=== PATIENT | male | born 1955 | race Caucasian/White ===

== ENCOUNTER 2018-05-17 08:34 | Emergency (ER) | payer MEDICARE ==
--- NOTE | 2018-05-17 08:56 | EDM.PDOC ---
ED HPI GENERAL MEDICAL PROBLEM - General Chief Complaint: Chest Pain Stated Complaint: RT SIDE STUFF Time Seen by Provider: 05/17/18 08:50 Source of Information: Reports: Patient, Provider History Limitations: Reports: No Limitations - History of Present Illness INITIAL COMMENTS - FREE TEXT/NARRATIVE: This 63 yo male patient was sent to the ED from the [facility] due to increased confusion, right sided chest pain and swelling in his right lower extremity. The patient was seen for pneumonia on May 04 and completed a course of Levaquin. The patient reported to Kelli Luciano that his blood sugars have been "fine" at home. The patient reports his symptoms started within the past 24 hours. The patient has a history of CAD, diabetes and a previous DVT ( reported by Kelli Luciano). Onset: Today Duration: Resolved Prior to Arrival Location: Reports: Chest Quality: Reports: Other Severity: Moderate Associated Symptoms: Reports: Shortness of Breath - Related Data Allergies Allergy/AdvReac Type Severity Reaction Status Date / Time No Known Allergies Allergy Verified 05/17/18 08:50 Home Meds: Home Meds Aspirin 81 mg PO DAILY 05/17/18 [History] Carvedilol [Coreg] 25 mg PO BID 05/17/18 [History] Codeine Phosphate/Guaifenesin [Guaifen-Codeine 100-10 mg/5 ml] 5 ml PO BEDTIME PRN 05/17/18 [History] Gabapentin [Neurontin] 300 mg PO TID 05/17/18 [History] Insulin Detemir [Levemir] 60 units SQ BEDTIME 05/17/18 [History] Insulin Regular, Human [Humulin R] 20 units SQ TID 05/17/18 [History] Inulin/Chromium Picolinate [Fiber Gummies] 2 tab PO DAILY 05/17/18 [History] Lisinopril/Hydrochlorothiazide [Zestoretic 20-12.5 mg Tablet] 1 tab PO DAILY [History] Simvastatin [Zocor] 20 mg PO BEDTIME 05/17/18 [History] ED ROS GENERAL - Review of Systems Review Of Systems: ROS reveals no pertinent complaints other than HPI. ED EXAM, GENERAL - Physical Exam Exam: See Below Exam Limited By: No Limitations General Appearance: Alert, WD/WN, No Apparent Distress Eye Exam: Bilateral Eye: EOMI, Normal Inspection, PERRL Ears: Normal External Exam, Normal Canal, Hearing Grossly Normal, Normal TMs Nose: Normal Inspection, Normal Mucosa, No Blood Throat/Mouth: Normal Inspection, Normal Lips, Normal Teeth, Normal Gums, Normal Oropharynx, Normal Voice, No Airway Compromise Head: Atraumatic, Normocephalic Neck: Normal Inspection, Supple, Non-Tender, Full Range of Motion Respiratory/Chest: Decreased Breath Sounds (bilateral lower lobes) Cardiovascular: Normal Peripheral Pulses, Regular Rate, Rhythm, No Gallop, No JVD, No Murmur, No Rub GI/Abdominal: Normal Bowel Sounds, Soft, Non-Tender, No Organomegaly, No Distention, No Abnormal Bruit, No Mass (Male) Exam: Deferred Rectal (Males) Exam: Deferred Back Exam: Normal Inspection, Full Range of Motion, NT Extremities: Pedal Edema Neurological: Alert, Oriented, CN II-XII Intact, Normal Cognition, Normal Gait, Normal Reflexes, No Motor/Sensory Deficits Psychiatric: Normal Affect, Normal Mood Skin Exam: Other (swelling and discoloration to bilateral lower extremities) Lymphatic: No Adenopathy Course - Vital Signs Last Recorded V/S: Last Vital Signs Temp 36.2 C 05/17/18 08:40 Pulse 80 05/17/18 11:01 Resp 20 05/17/18 11:01 BP 100/71 05/17/18 11:01 Pulse Ox 94 L 05/17/18 11:01 - Orders/Labs/Meds Orders: Active Orders 24 hr Category Date Time Status EKG Documentation Completion [RC] URGENT Care 05/17/18 08:37 Active CULTURE BLOOD [BC] Stat Lab 05/17/18 08:53 Received DRUG SCREEN URINE BIORAD [URCHEM] Stat Lab 05/17/18 08:37 Ordered UA RFX JUAN DIEGO AND CULT IF INDIC [URIN] Urgent Lab 05/17/18 08:37 Ordered Heparin Sodium/0.45% NaCl [Heparin 25,000 Units in 1/2 Med 05/17/18 09:49 Ordered NS 500 ML] 25,000 units in 500 ml IV TITRATE Medication Orders Heparin Sodium/Sodium Chloride (Heparin 25,000 Units In 1/2 Ns 500 Ml) 25,000 units in 500 mls @ 35.598 mls/hr IV TITRATE AEDLA Last Admin: 05/17/18 10:33 Dose: 12 units/kg/hr, 35.598 mls/hr Labs: Laboratory Tests 05/17/18 05/17/18 05/17/18 Range/Units 08:40 08:55 08:55 WBC (5.0-10.0) 10^3/uL RBC (4.6-6.2) 10^6/uL Hgb (14.0-18.0) g/dL Hct (40.0-54.0) % MCV (80-100) fL MCH (27.0-34.0) pg MCHC (33.0-35.0) g/dL Plt Count (150-450) 10^3/uL Neut % (Auto) (42.2-75.2) % Lymph % (Auto) (20.5-50.1) % Kings % (Auto) (2-8) % Eos % (Auto) (1.0-3.0) % Baso % (Auto) (0.0-1.0) % PT 10.7 (9.0-12.0) SEC INR 1.1 (0.9-1.2) D-Dimer, Quantitative 1380 H (0-400) ng/mL Sodium (135-145) mmol/L Potassium (3.6-5.0) mmol/L Chloride (101-111) mmol/L Carbon Dioxide (21.0-31.0) mmol/L Anion Gap BUN (7-18) mg/dL Creatinine (0.6-1.3) mg/dL Est Cr Clr Drug Dosing mL/min Estimated GFR (MDRD) BUN/Creatinine Ratio Glucose (74-105) mg/dL POC Glucose 162 H (70-105) mg/dl Lactic Acid (0.5-2.2) mmol/L Calcium (8.4-10.2) mg/dl Magnesium 1.7 L (1.8-2.5) mg/dL Total Bilirubin (0.2-1.0) mg/dL AST (10-42) IU/L ALT (10-60) IU/L Alkaline Phosphatase (42-121) IU/L Ammonia (11-35) umol/L Troponin I (0.00-0.02) ng/ml B-Natriuretic Peptide 982 H (0-100) pg/ml Total Protein (6.7-8.2) g/dl Albumin (3.2-5.5) g/dl Globulin Albumin/Globulin Ratio Amylase 23 L (28-100) U/L Lipase 25 (22-51) U/L Ethyl Alcohol < 5 mg/dL 05/17/18 05/17/18 05/17/18 Range/Units 08:55 08:55 08:55 WBC 10.1 H (5.0-10.0) 10^3/uL RBC 4.90 (4.6-6.2) 10^6/uL Hgb 14.2 (14.0-18.0) g/dL Hct 42.3 (40.0-54.0) % MCV 86.3 (80-100) fL MCH 29.0 (27.0-34.0) pg MCHC 33.6 (33.0-35.0) g/dL Plt Count 195 (150-450) 10^3/uL Neut % (Auto) 76.1 H (42.2-75.2) % Lymph % (Auto) 13.3 L (20.5-50.1) % Kings % (Auto) 9.0 H (2-8) % Eos % (Auto) 1.4 (1.0-3.0) % Baso % (Auto) 0.2 (0.0-1.0) % PT (9.0-12.0) SEC INR (0.9-1.2) D-Dimer, Quantitative (0-400) ng/mL Sodium 133 L (135-145) mmol/L Potassium 4.5 (3.6-5.0) mmol/L Chloride 98 L (101-111) mmol/L Carbon Dioxide 22.0 (21.0-31.0) mmol/L Anion Gap 17.5 BUN 27 H (7-18) mg/dL Creatinine 1.9 H (0.6-1.3) mg/dL Est Cr Clr Drug Dosing 49.50 mL/min Estimated GFR (MDRD) 36 BUN/Creatinine Ratio 14.21 Glucose 191 H (74-105) mg/dL POC Glucose (70-105) mg/dl Lactic Acid (0.5-2.2) mmol/L Calcium 8.4 (8.4-10.2) mg/dl Magnesium (1.8-2.5) mg/dL Total Bilirubin 1.2 H (0.2-1.0) mg/dL AST 250 H (10-42) IU/L ALT 47 (10-60) IU/L Alkaline Phosphatase 54 (42-121) IU/L Ammonia 26 (11-35) umol/L Troponin I 90.01 H* (0.00-0.02) ng/ml B-Natriuretic Peptide (0-100) pg/ml Total Protein 6.4 L (6.7-8.2) g/dl Albumin 3.5 (3.2-5.5) g/dl Globulin 2.9 Albumin/Globulin Ratio 1.21 Amylase (28-100) U/L Lipase (22-51) U/L Ethyl Alcohol mg/dL 05/17/18 Range/Units 08:55 WBC (5.0-10.0) 10^3/uL RBC (4.6-6.2) 10^6/uL Hgb (14.0-18.0) g/dL Hct (40.0-54.0) % MCV (80-100) fL MCH (27.0-34.0) pg MCHC (33.0-35.0) g/dL Plt Count (150-450) 10^3/uL Neut % (Auto) (42.2-75.2) % Lymph % (Auto) (20.5-50.1) % Kings % (Auto) (2-8) % Eos % (Auto) (1.0-3.0) % Baso % (Auto) (0.0-1.0) % PT (9.0-12.0) SEC INR (0.9-1.2) D-Dimer, Quantitative (0-400) ng/mL Sodium (135-145) mmol/L Potassium (3.6-5.0) mmol/L Chloride (101-111) mmol/L Carbon Dioxide (21.0-31.0) mmol/L Anion Gap BUN (7-18) mg/dL Creatinine (0.6-1.3) mg/dL Est Cr Clr Drug Dosing mL/min Estimated GFR (MDRD) BUN/Creatinine Ratio Glucose (74-105) mg/dL POC Glucose (70-105) mg/dl Lactic Acid 1.3 (0.5-2.2) mmol/L Calcium (8.4-10.2) mg/dl Magnesium (1.8-2.5) mg/dL Total Bilirubin (0.2-1.0) mg/dL AST (10-42) IU/L ALT (10-60) IU/L Alkaline Phosphatase (42-121) IU/L Ammonia (11-35) umol/L Troponin I (0.00-0.02) ng/ml B-Natriuretic Peptide (0-100) pg/ml Total Protein (6.7-8.2) g/dl Albumin (3.2-5.5) g/dl Globulin Albumin/Globulin Ratio Amylase (28-100) U/L Lipase (22-51) U/L Ethyl Alcohol mg/dL Meds: Medications Generic Name Dose Route Start Last Admin Trade Name Freq PRN Reason Stop Dose Admin Heparin Sodium/Sodium Chloride 25,000 units in 500 mls @ 35.598 mls/hr 09:49 05/17/18 10:33 Heparin 25,000 Units In 1/2 Ns 500 Ml IV 12 units/kg/hr TITRATE ADELA 35.598 mls/hr Administration 12 UNITS/KG/HR Discontinued Medications Generic Name Dose Route Start Last Admin Trade Name Freq PRN Reason Stop Dose Admin Aspirin 324 mg 05/17/18 09:37 05/17/18 09:41 Aspirin PO 05/17/18 09:38 324 mg ONETIME ONE Administration Heparin Sodium (Porcine) 4,000 units 05/17/18 09:48 05/17/18 10:02 Heparin Sodium IVPUSH 05/17/18 09:49 4,000 units .BOLUS ONE Administration Iopamidol 100 ml 05/17/18 09:50 05/17/18 10:32 Isovue-370 (76%) IVPUSH 05/17/18 09:51 88 ml ONETIME ONE Administration - Re-Assessments/Exams Free Text/Narrative Re-Assessment/Exam: 05/17/18 09:56 Discussed the history, examination, lab (elevated creat, elevated d-dimer, elevated trop, elevated BNP), EKG and initial x-ray results with Dr. Caballero. Dr. Caballero requested that we do a PE study prior to making transport decisions. 05/17/18 09:[address] was ordered, heparin bolus and drip were ordered. Departure - Departure Time of Disposition: 11:32 Disposition: DC/Tfer to Acute Hospital 02 Reason for Transfer *Q: Other Condition: Serious Clinical Impression: NSTEMI (non-ST elevated myocardial infarction), Elevated troponin, Elevated d- dimer Forms: Interfacility Transfer [facility] Care Plan Goals: Discussed the history, examination, lab, EKG, x-ray and CT results with Dr. Caballero (Hospitalist with [facility] in [place]). Dr. Caballero accepted the patient for continued evaluation and further treatment at [facility] in [place]. The patient will be transported by [facility]. - My Orders Last 24 Hours: My Active Orders 05/17/18 08:37 EKG Documentation Completion [RC] URGENT DRUG SCREEN URINE BIORAD [URCHEM] Stat UA RFX JUAN DIEGO AND CULT IF INDIC [URIN] Urgent 05/17/18 08:53 CULTURE BLOOD [BC] Stat 05/17/18 09:49 Heparin Sodium/0.45% NaCl [Heparin 25,000 Units in 1/2 NS 500 ML] 25,000 units in 500 ml IV TITRATE - Assessment/Plan Last 24 Hours: My Active Orders 05/17/18 08:37 EKG Documentation Completion [RC] URGENT DRUG SCREEN URINE BIORAD [URCHEM] Stat UA RFX JUAN DIEGO AND CULT IF INDIC [URIN] Urgent 05/17/18 08:53 CULTURE BLOOD [BC] Stat 05/17/18 09:49 Heparin Sodium/0.45% NaCl [Heparin 25,000 Units in 1/2 NS 500 ML] 25,000 units in 500 ml IV TITRATE
[2018-05-17 09:22] LABS: ANION GAP 17.5
[2018-05-17] MEDS ORDERED: Aspirin 81 MG Tab.Chew PO ONE (09:37)
[2018-05-17] MEDS ORDERED: Heparin Sodium 5,000 Units/ML Vial IVPUSH ONE (09:48)
[2018-05-17] MEDS ORDERED: Heparin Sodium/0.45% NaCl 25,000 UNITS/500 ML BAG IV SCH (09:49)
[2018-05-17] MEDS ORDERED: Iopamidol 755 Mg/ML 100 ML Bottle IVPUSH ONE (09:50)
--- NOTE | 2018-05-17 10:21 | CR ---
Clinical history: 63-year-old diabetic male emergency department with confusion and chest pain (serum D dimer 1380). Interpretation: Upright AP chest film abnormal. Borderline cardiomegaly, generalized mild venous congestion and asymmetric consolidation left base suggesting dependent pleural effusion (underlying atelectasis or infiltrate probable). No lung mass or hilar lymphadenopathy. No other focal lobar consolidation. No pneumothorax.
--- NOTE | 2018-05-17 11:05 | CT ---
Clinical history: 63-year-old hypertensive 227 pound diabetic male with chest pain and abnormally elevated serum D dimer of 1380. (BNP 982 and serum troponin 90) Scan technique: Volume acquisition of data from the chest (bony thorax, lungs and mediastinum) obtained during intravenous 88 mL Isovue-370 while the patient was lying supine on the Siemens multi slice CT scanner [place], [place] (5 cc/s via injector per PE protocol). All data archived in the PACS system for storage, reformatting and study. Interpretation: Abnormal. 1. Bibasilar dependent subpulmonic pleural effusions (large on the left); cardiomegaly; densely calcified coronary arteries. 2. Pulmonary vascular congestion and cephalization but no alveolar edema. 3. Small middle mediastinal (subcarinal) lymph nodes. No lung mass or hilar lymphadenopathy. 4. No focal lobar infiltrate or atelectasis. 5. No sign of intraluminal filling defect or thrombus pulmonary artery circulation. No abnormal focal lobar oligemia, lobar atelectasis/collapse or peripheral, pleural-based wedge shaped infarcts. CONCLUSION: Cardiovascular disease with bibasilar pleural effusions. No current evidence of pulmonary embolism or infarct.
== END 2018-05-17 11:59 ==
LOC: DL.ED 08:34
DX: I21.4 Non-ST elevation (NSTEMI) myocardial infarction (principal); R79.89 Other specified abnormal findings of blood chemistry; R79.1 Abnormal coagulation profile; I25.10 Atherosclerotic heart disease of native coronary artery without angina pectoris; E11.9 Type 2 diabetes mellitus without complications; Z79.4 Long term (current) use of insulin; Z86.718 Personal history of other venous thrombosis and embolism; Z79.82 Long term (current) use of aspirin; Z79.899 Other long term (current) drug therapy
CPT/HCPCS: 36415; 71045; 71260; 80053; 82140; 82150; 82962; 83605; 83690; 83735; 83880; 84484; 85025; 85379; 85610; 87040; 93005; 96365; 96376; 99285; A9270; G0480; J1644; Q9967

== ENCOUNTER 2018-06-04 10:44 | Emergency (ER) | payer MEDICARE ==
--- NOTE | 2018-06-04 12:57 | EDM.PDOC ---
<EbonyTrish R - Last Filed: 06/04/18 13:20> ED HPI GENERAL MEDICAL PROBLEM - General Chief Complaint: General Stated Complaint: REFERRED BY DR. DANIELS Time Seen by Provider: 06/04/18 10:50 Source of Information: Reports: Patient, RN, RN Notes Reviewed, Significant Other History Limitations: Reports: No Limitations - History of Present Illness INITIAL COMMENTS - FREE TEXT/NARRATIVE: Patient presents to the Emergency department via Wheelchair from the clinic via clinic nurse. He was at the clinic for a lab draw and was scheduled for a Echocardiogram. He has no current complaints while in the ED. He states "I feel pretty good today." He states that his right hand was cold earlier but not at this time. He has a history of NSTEMI and stent placement. His family reports that he is having episodes of disorientation and states when he is going to stand up and sits at the edge of the chair to remember what he was going to do then does the activity. He has had decreased appetite. Denies chest pain, SOB, N&V, diarrhea, constipation, and pain. His family states that he has not been himself since the stent placement. He states that when he had pneumonia he had a productive cough but denies a cough at this time. Onset: Unknown/Unsure Duration: Resolved Prior to Arrival Improves with: Reports: None Worsens with: Reports: None Treatments REFRIGERATION SERVICE INSPECTOR: Reports: Other (see below) (seen at clinic with labs then sent to ER) Other Treatments REFRIGERATION SERVICE INSPECTOR: lab drawn at [facility] prior to ED presentation - Related Data Allergies Allergy/AdvReac Type Severity Reaction Status Date / Time No Known Allergies Allergy Verified 06/04/18 11:38 Home Meds: Home Meds Carvedilol [Coreg] 12.5 mg PO BIDMEALS 05/17/18 [History] Codeine Phosphate/Guaifenesin [Guaifen-Codeine 100-10 mg/5 ml] 5 ml PO BEDTIME PRN 05/17/18 [History] Gabapentin [Neurontin] 300 mg PO TID 05/17/18 [History] Insulin Detemir [Levemir] 60 units SQ BEDTIME 05/17/18 [History] Insulin Regular, Human [Humulin R] 20 units SQ TID 05/17/18 [History] Inulin/Chromium Picolinate [Fiber Gummies] 2 tab PO DAILY 05/17/18 [History] Lisinopril/Hydrochlorothiazide [Zestoretic 20-12.5 mg Tablet] 1 tab PO BEDTIME 05/17/18 [History] Simvastatin [Zocor] 20 mg PO BEDTIME 05/17/18 [History] Apixaban [Eliquis] 5 mg PO BID 06/04/18 [History] Furosemide 40 mg PO DAILY 06/04/18 [History] Spironolactone [Aldactone] 0.5 tab PO DAILY 06/04/18 [History] Past Medical History HEENT History: Reports: Hard of Hearing, Impaired Vision Other HEENT History: wars glasses Cardiovascular History: Reports: Blood Clots/VTE/DVT, High Cholesterol, Hypertension, Stents Respiratory History: Reports: None Gastrointestinal History: Reports: None Genitourinary History: Reports: None Musculoskeletal History: Reports: Arthritis Neurological History: Reports: None Psychiatric History: Reports: None Endocrine/Metabolic History: Reports: Diabetes, Type II, Obesity/BMI 30+ Hematologic History: Reports: None Immunologic History: Reports: None Oncologic (Cancer) History: Reports: None Dermatologic History: Reports: None - Infectious Disease History Infectious Disease History: Reports: Chicken Pox, Shingles Social & Family History - Caffeine Use Caffeine Use: Reports: Tea ED ROS GENERAL - Review of Systems Review Of Systems: ROS reveals no pertinent complaints other than HPI. ED EXAM, GENERAL - Physical Exam Exam: See Below Exam Limited By: No Limitations General Appearance: Alert, WD/WN, No Apparent Distress Eye Exam: Bilateral Eye: EOMI, Normal Inspection, Nystagmus (one beat), PERRL, Other (elisabeth vision changes or headaches) Ears: Normal External Exam, Normal Canal, Hearing Grossly Normal, Normal TMs Nose: Normal Inspection, Normal Mucosa, No Blood Throat/Mouth: Normal Inspection, Normal Lips, Normal Teeth, Normal Gums, Normal Oropharynx, Normal Voice, No Airway Compromise Head: Atraumatic, Normocephalic Neck: Normal Inspection, Supple, Non-Tender, Full Range of Motion Respiratory/Chest: No Respiratory Distress, Lungs Clear, Normal Breath Sounds, No Accessory Muscle Use, Chest Non-Tender Cardiovascular: Normal Peripheral Pulses, Regular Rate, Rhythm, No Edema, No Gallop, No JVD, No Murmur, No Rub Peripheral Pulses: 2+: Brachial (L), Brachial (R), Posterior Tibial (L), Posterior Tibial (R) GI/Abdominal: Normal Bowel Sounds, Soft, Non-Tender, No Organomegaly, No Distention, No Abnormal Bruit, No Mass (Male) Exam: Deferred Rectal (Males) Exam: Deferred Back Exam: Normal Inspection, Full Range of Motion, NT Extremities: Normal Inspection, Normal Range of Motion, Non-Tender, Normal Capillary Refill, No Pedal Edema Neurological: Alert (answers questions appropriately.), Oriented, CN II-XII Intact, Normal Cognition, Normal Gait, Normal Reflexes, No Motor/Sensory Deficits. No: Sensory/Motor Deficit Psychiatric: Normal Affect, Normal Mood Skin Exam: Warm, Dry, Intact, Other (dry flaky skin on lower extremitites) Lymphatic: No Adenopathy Course - Vital Signs Last Recorded V/S: Last Vital Signs Temp 36.9 C 06/04/18 11:23 Pulse 75 06/04/18 11:23 Resp 16 06/04/18 11:23 BP 113/78 06/04/18 11:23 Pulse Ox 96 06/04/18 11:23 - Orders/Labs/Meds Orders: Active Orders 24 hr Category Date Time Status Chest 2V [CR] Urgent Exams 06/04/18 12:36 Taken Head wo Cont [CT] Stat Exams 06/04/18 12:37 Taken Departure - Departure Time of Disposition: 13:13 Disposition: Home, Self-Care 01 Condition: Good Clinical Impression: Disorientation - Discharge Information *PRESCRIPTION DRUG MONITORING PROGRAM REVIEWED*: Not Applicable *COPY OF PRESCRIPTION DRUG MONITORING REPORT IN PATIENT KEL: Not Applicable Referrals: PCP,None [Primary Care Provider] - Forms: ED Department Discharge Additional Instructions: Reassured patient that chest x-ray showed improvement since last exam and CT showed no acute findings Keep upcoming appointment with PCP, Cardiology, and Nephrology. Return to ED if condition worsens. - My Orders Last 24 Hours: My Active Orders 06/04/18 12:36 Chest 2V [CR] Urgent 06/04/18 12:37 Head wo Cont [CT] Stat - Assessment/Plan Last 24 Hours: My Active Orders 06/04/18 12:36 Chest 2V [CR] Urgent 06/04/18 12:37 Head wo Cont [CT] Stat Plan: Reassured patient that chest x-ray showed improvement since last exam and CT showed no acute findings Keep upcoming appointment with PCP, Cardiology, and Nephrology. Return to ED if condition worsens. <Raffy Black - Last Filed: 06/04/18 13:44> Course - Re-Assessments/Exams Free Text/Narrative Re-Assessment/Exam: 06/04/18 13:40 I did see this patient in tandem with the nurse practitioner soon. I was present during physical examination Planning and disposition. I did physically examine the patient as well. I agree with the plan of care and the disposition. Patient really presents with no symptomology today. His reports disorientation patient denies any. CT scan of the headache was negative for acute intracranial abnormality. Chest x-ray shows improvement of the left pleural effusion. No other acute process. I do not feel that any further workup or evaluation is warranted at this time as the patient is asymptomatic. We did review his laboratory evaluation today from the clinic that shows an improvement of his creatinine down from 1.9-1.8. WBC is 8.41 hemoglobin of 14.4 platelets 243. His GFR appears to be at baseline. Without any complaints and the patient stating "I feel pretty good today" we'll discharge him home and have him keep his follow-up is planned with nephrology as well as cardiology. Recheck if he develops any symptoms. Patient and his are comfortable with this plan and their questions are answered.
== END 2018-06-04 13:39 | disposition home or self-care (01) ==
LOC: DL.ED 10:44
DX: R41.0 Disorientation, unspecified (principal); I10 Essential (primary) hypertension; E11.9 Type 2 diabetes mellitus without complications; E66.9 Obesity, unspecified; Z79.4 Long term (current) use of insulin; I25.2 Old myocardial infarction; Z79.899 Other long term (current) drug therapy; Z95.5 Presence of coronary angioplasty implant and graft
CPT/HCPCS: 70450; 71046; 93306; 99283-25

== ENCOUNTER 2018-07-07 18:45 | Inpatient (IN) | payer MEDICARE ==
--- NOTE | 2018-07-07 19:13 | EDM.PDOC ---
ED HPI GENERAL MEDICAL PROBLEM - General Chief Complaint: Respiratory Problem Stated Complaint: CHEST PAIN, SOB Time Seen by Provider: 07/07/18 18:58 Source of Information: Reports: Patient History Limitations: Reports: No Limitations - History of Present Illness INITIAL COMMENTS - FREE TEXT/NARRATIVE: This 63 yo male patient reports to the ED with increased shortness of breath, diffuse abdominal pain and lower extremity swelling. The patient reports he started to have symptoms 2 days ago, but his shortness of breath has been getting worse throughout the day. The patient reports he has not been taking 1 of his water pills as it did not get filled in time, so he has not taken it for the past 4 days. The patient reports he has also had nausea, vomiting, diarrhea (all resolved this morning with the last episode at 0400 today) and a productive cough. The patient reports he has had stents placed with the last stents placed in May. Duration: Day(s):, Constant, Getting Worse Location: Reports: Chest, Abdomen Quality: Reports: Other Severity: Moderate Improves with: Reports: Other (sitting forward) Worsens with: Reports: Other (sitting back and lying down) Context: Reports: Other Associated Symptoms: Reports: cough w sputum, Nausea/Vomiting, Shortness of Breath Abdomen Pain Score (Numeric/FACES): 8 - Related Data Allergies Allergy/AdvReac Type Severity Reaction Status Date / Time No Known Allergies Allergy Verified 07/07/18 19:59 Home Meds: Home Meds Carvedilol [Coreg] 12.5 mg PO BIDMEALS 05/17/18 [History] Codeine Phosphate/Guaifenesin [Guaifen-Codeine 100-10 mg/5 ml] 5 ml PO BEDTIME PRN 05/17/18 [History] Gabapentin [Neurontin] 300 mg PO TID 05/17/18 [History] Insulin Detemir [Levemir] 60 units SQ BEDTIME 05/17/18 [History] Insulin Regular, Human [Humulin R] 20 units SQ TID 05/17/18 [History] Inulin/Chromium Picolinate [Fiber Gummies] 2 tab PO DAILY 05/17/18 [History] Lisinopril/Hydrochlorothiazide [Zestoretic 20-12.5 mg Tablet] 1 tab PO BEDTIME 05/17/18 [History] Simvastatin [Zocor] 20 mg PO BEDTIME 05/17/18 [History] Apixaban [Eliquis] 5 mg PO BID 06/04/18 [History] Furosemide 40 mg PO DAILY 06/04/18 [History] Spironolactone [Aldactone] 0.5 tab PO DAILY 06/04/18 [History] Past Medical History HEENT History: Reports: Hard of Hearing, Impaired Vision Other HEENT History: wars glasses Cardiovascular History: Reports: Blood Clots/VTE/DVT, High Cholesterol, Hypertension, [place], Stents Other Cardiovascular History: EF 25% Respiratory History: Reports: None Gastrointestinal History: Reports: None Genitourinary History: Reports: None Other Genitourinary History: Stage 3 chronic kidney disease. Musculoskeletal History: Reports: Arthritis Neurological History: Reports: None Psychiatric History: Reports: None Endocrine/Metabolic History: Reports: Diabetes, Type II, Obesity/BMI 30+ Hematologic History: Reports: None Immunologic History: Reports: None Oncologic (Cancer) History: Reports: None Dermatologic History: Reports: None - Infectious Disease History Infectious Disease History: Reports: None Social & Family History - Family History Family Medical History: Noncontributory - Tobacco Use Smoking Status *Q: Never Smoker - Caffeine Use Caffeine Use: Reports: Tea - Recreational Drug Use Recreational Drug Use: No ED ROS GENERAL - Review of Systems Review Of Systems: ROS reveals no pertinent complaints other than HPI. ED EXAM, GENERAL - Physical Exam Exam: See Below Exam Limited By: No Limitations General Appearance: Alert, WD/WN, Moderate Distress Eye Exam: Bilateral Eye: EOMI, Normal Inspection, PERRL Ears: Normal External Exam, Normal Canal, Hearing Grossly Normal, Normal TMs Nose: Normal Inspection, Normal Mucosa, No Blood Throat/Mouth: Normal Inspection, Normal Lips, Normal Teeth, Normal Gums, Normal Oropharynx, Normal Voice, No Airway Compromise Head: Atraumatic, Normocephalic Neck: Normal Inspection, Supple, Non-Tender, Full Range of Motion Respiratory/Chest: No Respiratory Distress, No Accessory Muscle Use, Chest Non- Tender, Decreased Breath Sounds Cardiovascular: Normal Peripheral Pulses, Regular Rate, Rhythm, No Gallop, No Murmur, No Rub GI/Abdominal: Normal Bowel Sounds, Soft, No Abnormal Bruit, No Mass, Pelvis Stable, Distended, Tender (diffuse upper abdominal tenderness) (Male) Exam: Deferred Rectal (Males) Exam: Deferred Back Exam: Normal Inspection, Full Range of Motion, NT Extremities: Pedal Edema Neurological: Alert, Oriented, CN II-XII Intact, Normal Cognition Psychiatric: Normal Affect, Normal Mood Skin Exam: Warm, Dry, Intact, Normal Color, No Rash Lymphatic: No Adenopathy Course - Vital Signs Last Recorded V/S: Last Vital Signs Temp 36.1 C 07/07/18 18:55 Pulse 110 H 07/07/18 18:55 Resp 24 H 07/07/18 18:55 BP 178/135 H 07/07/18 18:55 Pulse Ox 87 L 07/07/18 18:55 - Orders/Labs/Meds Orders: Active Orders 24 hr Category Date Time Status EKG Documentation Completion [RC] URGENT Care 07/07/18 19:06 Active Labs: Laboratory Tests 07/07/18 07/07/18 07/07/18 Range/Units 18:55 18:55 18:55 WBC 9.0 (5.0-10.0) 10^3/uL RBC 5.67 (4.6-6.2) 10^6/uL Hgb 16.2 D (14.0-18.0) g/dL Hct 49.1 (40.0-54.0) % MCV 86.6 (80-100) fL MCH 28.6 (27.0-34.0) pg MCHC 33.0 (33.0-35.0) g/dL Plt Count 168 (150-450) 10^3/uL Neut % (Auto) 75.9 H (42.2-75.2) % Lymph % (Auto) 15.5 L (20.5-50.1) % [place] % (Auto) 7.6 (2-8) % Eos % (Auto) 0.9 L (1.0-3.0) % Baso % (Auto) 0.1 (0.0-1.0) % D-Dimer, Quantitative 1330 H (0-400) ng/mL Sodium (135-145) mmol/L Potassium (3.6-5.0) mmol/L Chloride (101-111) mmol/L Carbon Dioxide (21.0-31.0) mmol/L Anion Gap BUN (7-18) mg/dL Creatinine (0.6-1.3) mg/dL Est Cr Clr Drug Dosing mL/min Estimated GFR (MDRD) BUN/Creatinine Ratio Glucose (74-105) mg/dL Calcium (8.4-10.2) mg/dl Total Bilirubin (0.2-1.0) mg/dL AST (10-42) IU/L ALT (10-60) IU/L Alkaline Phosphatase (42-121) IU/L Troponin I (0.00-0.02) ng/ml B-Natriuretic Peptide 1210 H (0-100) pg/ml Total Protein (6.7-8.2) g/dl Albumin (3.2-5.5) g/dl Globulin Albumin/Globulin Ratio 07/07/18 Range/Units 19:35 WBC (5.0-10.0) 10^3/uL RBC (4.6-6.2) 10^6/uL Hgb (14.0-18.0) g/dL Hct (40.0-54.0) % MCV (80-100) fL MCH (27.0-34.0) pg MCHC (33.0-35.0) g/dL Plt Count (150-450) 10^3/uL Neut % (Auto) (42.2-75.2) % Lymph % (Auto) (20.5-50.1) % [place] % (Auto) (2-8) % Eos % (Auto) (1.0-3.0) % Baso % (Auto) (0.0-1.0) % D-Dimer, Quantitative (0-400) ng/mL Sodium 136 (135-145) mmol/L Potassium 5.0 (3.6-5.0) mmol/L Chloride 102 (101-111) mmol/L Carbon Dioxide 22.0 (21.0-31.0) mmol/L Anion Gap 17.0 BUN 29 H (7-18) mg/dL Creatinine 1.5 H (0.6-1.3) mg/dL Est Cr Clr Drug Dosing 62.70 mL/min Estimated GFR (MDRD) 47 BUN/Creatinine Ratio 19.33 Glucose 114 H (74-105) mg/dL Calcium 8.8 (8.4-10.2) mg/dl Total Bilirubin 1.5 H (0.2-1.0) mg/dL AST 25 (10-42) IU/L ALT 27 (10-60) IU/L Alkaline Phosphatase 57 (42-121) IU/L Troponin I 0.06 H* (0.00-0.02) ng/ml B-Natriuretic Peptide (0-100) pg/ml Total Protein 7.4 (6.7-8.2) g/dl Albumin 3.9 (3.2-5.5) g/dl Globulin 3.5 Albumin/Globulin Ratio 1.11 Meds: Medications Discontinued Medications Generic Name Dose Route Start Last Admin Trade Name Freq PRN Reason Stop Dose Admin Furosemide 40 mg 07/07/18 20:06 Lasix IVPUSH 07/07/18 20:07 NOW ONE Departure - Departure Time of Disposition: 20:08 Disposition: Admitted As Inpatient 65 Condition: Fair Clinical Impression: Elevated troponin, Elevated d-dimer CHF (congestive heart failure) Qualifiers: Heart failure type: unspecified Heart failure chronicity: acute on chronic Qualified Code(s): I50.9 - Heart failure, unspecified - Discharge Information *PRESCRIPTION DRUG MONITORING PROGRAM REVIEWED*: Not Applicable *COPY OF PRESCRIPTION DRUG MONITORING REPORT IN PATIENT KEL: Not Applicable Referrals: Kelli Luciano PA [Primary Care Provider] - Care Plan Goals: Discussed the patient's history, examination, EKG, x-ray and lab results with Dr. Nix. Dr. Nix accepted the patient for continued evaluation and treatment as an inpatient at [facility]. The patient was given an IV dose of Lasix prior to transfer to the floor. - My Orders Last 24 Hours: My Active Orders 07/07/18 19:06 EKG Documentation Completion [RC] URGENT - Assessment/Plan Last 24 Hours: My Active Orders 07/07/18 19:06 EKG Documentation Completion [RC] URGENT
[2018-07-07] MEDS ORDERED: Furosemide 40 MG/4 ML VIAL IVPUSH ONE (20:06)
[2018-07-07] MEDS ORDERED: Acetaminophen 325 MG Tab PO PRN (21:02)
--- NOTE | 2018-07-07 21:19 | PCM.HP ---
H&P History of Present Illness - General Date of Service: 07/07/18 Admit Problem/Dx: Admission Diagnosis/Problem Admission Diagnosis/Problem CHF, Congestive heart failure Source of Information: Patient, Old Records ([facility]) - History of Present Illness Initial Comments - Free Text/Narative: 63-year-old with a history of hypertension, dyslipidemia, chronic kidney disease stage III, diabetes. The patient also has coronary artery disease with recent acute non-ST elevation myocardial infarction with ischemic cardiomyopathy. Last echocardiogram June 04, 2018 showed ejection fraction 25-30%. The patient has been having loose bowel movement for about a week. He ran out of his Lasix about 3 days prior to this admission. In the past few days the patient has been experiencing increasing shortness of breath, lower extremity swelling. Shortness of breath is worse with activity, worse with laying back. Better when sitting up and sleeping in a sitting position It is associated with cough with clear sputum production. No associated fever or chills. No chest pain. Abdomen Pain Score (Numeric/FACES): 8 - Related Data Allergies/Adverse Reactions: Allergies Allergy/AdvReac Type Severity Reaction Status Date / Time No Known Allergies Allergy Verified 07/07/18 19:59 Home Medications: Home Meds Carvedilol [Coreg] 12.5 mg PO BIDMEALS 05/17/18 [History] Gabapentin [Neurontin] 300 mg PO TID 05/17/18 [History] Insulin Regular, Human [Humulin R] 20 units SQ TID 05/17/18 [History] Inulin/Chromium Picolinate [Fiber Gummies] 2 tab PO DAILY 05/17/18 [History] Simvastatin [Zocor] 20 mg PO BEDTIME 05/17/18 [History] Apixaban [Eliquis] 5 mg PO BID 06/04/18 [History] Furosemide 40 mg PO DAILY 06/04/18 [History] Spironolactone [Aldactone] 0.5 tab PO DAILY 06/04/18 [History] Clopidogrel [Plavix] 75 mg PO DAILY 07/07/18 [History] Insulin NPH Human Isophane [Humulin N] 60 units SUBCUT WITHDINNER 07/07/18 [ History] Lisinopril 2.5 mg PO DAILY 07/07/18 [History] Past Medical History HEENT History: Reports: Hard of Hearing, Impaired Vision Other HEENT History: wars glasses Cardiovascular History: Reports: Blood Clots/VTE/DVT, High Cholesterol, Hypertension, [place], Stents Other Cardiovascular History: EF 25% Respiratory History: Reports: None Gastrointestinal History: Reports: None Genitourinary History: Reports: None Other Genitourinary History: Stage 3 chronic kidney disease. Musculoskeletal History: Reports: Arthritis Neurological History: Reports: None Psychiatric History: Reports: None Endocrine/Metabolic History: Reports: Diabetes, Type II, Obesity/BMI 30+ Hematologic History: Reports: None Immunologic History: Reports: None Oncologic (Cancer) History: Reports: None Dermatologic History: Reports: None - Infectious Disease History Infectious Disease History: Reports: None Social & Family History - Family History Family Medical History: Noncontributory - Tobacco Use Smoking Status *Q: Never Smoker - Caffeine Use Caffeine Use: Reports: Tea - Recreational Drug Use Recreational Drug Use: No H&P Review of Systems - Review of Systems: Review Of Systems: See Below General: Denies: Fever, Chills Pulmonary: Reports: Shortness of Breath, Cough, Sputum. Denies: Wheezing, Hemoptysis Cardiovascular: Reports: Dyspnea on Exertion, Orthopnea, PND, Edema. Denies: Chest Pain, Syncope Gastrointestinal: Reports: Abdominal Pain, Diarrhea (Loose bowel movement once a day). Denies: Black Stool, Bloody Stool Psychiatric: Denies: Confusion Neurological: Denies: Dizziness Exam - Exam Exam: See Below - Vital Signs Vital Signs: Last Vital Signs Temp 36.1 C 07/07/18 18:55 Pulse 110 H 07/07/18 18:55 Resp 24 H 07/07/18 18:55 BP 178/135 H 07/07/18 18:55 Pulse Ox 87 L 07/07/18 18:55 Weight: 144.696 kg - Exam General: Alert, Oriented HEENT: EOMI Neck: Supple Lungs: Normal Respiratory Effort, Decreased Breath Sounds Cardiovascular: Regular Rate, Regular Rhythm GI/Abdominal Exam: Normal Bowel Sounds, Soft, Non-Tender, Other (Obese) Extremities: Pedal Edema (Bilateral 3+ edema up to hip area) Skin: Other (Bilateral lower extremity chronic venous stenosis changes) Neuro Extensive - Mental Status: Alert, Oriented x3, Normal Mood/Affect Psychiatric: Alert, Normal Affect, Normal Mood - Patient Data Lab Results Last 24 hrs: Laboratory Results - last 24 hr 0407/07/18 07/07/18 Range/Units 18:55 18:55 18:55 WBC 9.0 (5.0-10.0) 10^3/uL RBC 5.67 (4.6-6.2) 10^6/uL Hgb 16.2 D (14.0-18.0) g/dL Hct 49.1 (40.0-54.0) % MCV 86.6 (80-100) fL MCH 28.6 (27.0-34.0) pg MCHC 33.0 (33.0-35.0) g/dL Plt Count 168 (150-450) 10^3/uL Neut % (Auto) 75.9 H (42.2-75.2) % Lymph % (Auto) 15.5 L (20.5-50.1) % [place] % (Auto) 7.6 (2-8) % Eos % (Auto) 0.9 L (1.0-3.0) % Baso % (Auto) 0.1 (0.0-1.0) % D-Dimer, Quantitative 1330 H (0-400) ng/mL Sodium (135-145) mmol/L Potassium (3.6-5.0) mmol/L Chloride (101-111) mmol/L Carbon Dioxide (21.0-31.0) mmol/L Anion Gap BUN (7-18) mg/dL Creatinine (0.6-1.3) mg/dL Est Cr Clr Drug Dosing mL/min Estimated GFR (MDRD) BUN/Creatinine Ratio Glucose (74-105) mg/dL Calcium (8.4-10.2) mg/dl Total Bilirubin (0.2-1.0) mg/dL AST (10-42) IU/L ALT (10-60) IU/L Alkaline Phosphatase (42-121) IU/L Troponin I (0.00-0.02) ng/ml B-Natriuretic Peptide 1210 H (0-100) pg/ml Total Protein (6.7-8.2) g/dl Albumin (3.2-5.5) g/dl Globulin Albumin/Globulin Ratio 07/07/18 Range/Units 19:35 WBC (5.0-10.0) 10^3/uL RBC (4.6-6.2) 10^6/uL Hgb (14.0-18.0) g/dL Hct (40.0-54.0) % MCV (80-100) fL MCH (27.0-34.0) pg MCHC (33.0-35.0) g/dL Plt Count (150-450) 10^3/uL Neut % (Auto) (42.2-75.2) % Lymph % (Auto) (20.5-50.1) % [place] % (Auto) (2-8) % Eos % (Auto) (1.0-3.0) % Baso % (Auto) (0.0-1.0) % D-Dimer, Quantitative (0-400) ng/mL Sodium 136 (135-145) mmol/L Potassium 5.0 (3.6-5.0) mmol/L Chloride 102 (101-111) mmol/L Carbon Dioxide 22.0 (21.0-31.0) mmol/L Anion Gap 17.0 BUN 29 H (7-18) mg/dL Creatinine 1.5 H (0.6-1.3) mg/dL Est Cr Clr Drug Dosing 62.70 mL/min Estimated GFR (MDRD) 47 BUN/Creatinine Ratio 19.33 Glucose 114 H (74-105) mg/dL Calcium 8.8 (8.4-10.2) mg/dl Total Bilirubin 1.5 H (0.2-1.0) mg/dL AST 25 (10-42) IU/L ALT 27 (10-60) IU/L Alkaline Phosphatase 57 (42-121) IU/L Troponin I 0.06 H* (0.00-0.02) ng/ml B-Natriuretic Peptide (0-100) pg/ml Total Protein 7.4 (6.7-8.2) g/dl Albumin 3.9 (3.2-5.5) g/dl Globulin 3.5 Albumin/Globulin Ratio 1.11 Result Diagrams: 07/07/18 18:55 07/07/18 19:35 - Problem List (1) Hypertension SNOMED Code(s): 59089718 ICD Code: I10 - ESSENTIAL (PRIMARY) HYPERTENSION Status: Acute Current Visit: Yes (2) Chronic kidney disease, stage III (moderate) SNOMED Code(s): 868313171 ICD Code: N18.3 - CHRONIC KIDNEY DISEASE, STAGE 3 (MODERATE) Status: Acute Current Visit: Yes (3) Diabetes SNOMED Code(s): 50511792 ICD Code: E11.9 - TYPE 2 DIABETES MELLITUS WITHOUT COMPLICATIONS Status: Acute Current Visit: Yes (4) CHF (congestive heart failure) SNOMED Code(s): 39258637 ICD Code: I50.9 - HEART FAILURE, UNSPECIFIED Status: Acute Current Visit : Yes Qualifiers: Heart failure type: unspecified Heart failure chronicity: acute on chronic Qualified Code(s): I50.9 - Heart failure, unspecified Problem List Initiated/Reviewed/Updated: Yes Orders Last 24hrs: Active Orders 24 hr Category Date Time Status Patient Status [ADT] Routine ADT 07/07/18 21:03 Active Antiembolic Devices [RC] PER UNIT ROUTINE Care 07/07/18 21:04 Active Glucose [Blood Glucose Check, Bedside] [RC] QIDACANDBED Care 07/07/18 21:01 Active Oxygen Therapy [RC] PRN Care 07/07/18 21:03 Active Peripheral IV Care [RC] . DIRECTED Care 07/07/18 21:04 Active Up With Assistance [RC] ASDIRECTED Care 07/07/18 21:02 Active VTE/DVT Education [RC] PER UNIT ROUTINE Care 07/07/18 21:03 Active Vital Signs [RC] Q4H Care 07/07/18 21:03 Active Consistent Carbohydrate Diet [DIET] Diet 07/07/18 Breakfast Active BASIC METABOLIC PANEL,BMP [CHEM] AM Lab 07/08/18 05:15 Ordered CBC WITH AUTO DIFF [HEME] AM Lab 07/08/18 05:15 Ordered TROPONIN I [CHEM] AM Lab 07/08/18 05:11 Ordered Acetaminophen [Tylenol] Med 07/07/18 21:02 Ordered 650 mg PO Q4H PRN Apixaban [Eliquis] Med 07/08/18 09:00 Ordered 5 mg PO BID Carvedilol [Coreg] Med 07/08/18 08:00 Ordered 12.5 mg PO BIDMEALS Clopidogrel [Plavix] Med 07/08/18 09:00 Ordered 75 mg PO DAILY Furosemide [Lasix] Med 07/08/18 07:00 Ordered 40 mg IVPUSH Q8H Gabapentin [Neurontin] Med 07/08/18 09:00 Ordered 300 mg PO TID Insulin Lispro [HumaLOG] Med 07/08/18 07:00 Ordered See Protocol SUBCUT ACBED Insulin NPH Human Isophane Med 07/08/18 18:00 Ordered 60 units SUBCUT WITHDINNER Insulin Regular, Human [HumuLIN R] Med 07/08/18 09:00 Ordered 20 unit SUBCUT TID Lisinopril [Lisinopril] Med 07/08/18 09:00 Ordered 2.5 mg PO DAILY Simvastatin [Zocor] Med 07/08/18 21:00 Ordered 20 mg PO BEDTIME Sodium Chloride 0.9% [Saline Flush] Med 07/07/18 21:02 Ordered 10 ml FLUSH ASDIRECTED PRN Spironolactone [Aldactone] Med 07/08/18 09:00 Ordered 12.5 mg PO DAILY Zolpidem [Ambien] Med 07/07/18 21:02 Ordered 5 mg PO BEDTIME PRN Antiembolic Hose [OM.PC] Per Unit Routine Oth 07/07/18 21:03 Ordered Peripheral IV Insertion Adult [OM.PC] Routine Oth 07/07/18 21:02 Ordered Saline Lock Insert [OM.PC] Routine Oth 07/07/18 21:02 Ordered Resuscitation Status Routine Resus Stat 07/07/18 21:02 Ordered Medication Orders Acetaminophen (Tylenol) 650 mg PO Q4H PRN PRN Reason: Pain (Mild 1-3)/fever Carvedilol (Coreg) 12.5 mg PO BIDMEALS [place] Clopidogrel Bisulfate (Plavix) 75 mg PO DAILY [place] Furosemide (Lasix) 40 mg IVPUSH Q8H [place] Gabapentin (Neurontin) 300 mg PO TID [facility] Insulin Human Lispro (Humalog) 0 unit SUBCUT ACBED [place]; Protocol Insulin Human Regular (Humulin R) 20 unit SUBCUT TID [place] Non-Formulary Medication (Apixaban [Eliquis]) 5 mg PO BID [place] Non-Formulary Medication (Lisinopril [Lisinopril]) 2.5 mg PO DAILY [place] Non-Formulary Medication (Simvastatin [Zocor]) 20 mg PO BEDTIME [place] Non-Formulary Medication (Insulin Nph Human Isophane) 60 units SUBCUT WITHDINNER [facility] Sodium Chloride (Saline Flush) 10 ml FLUSH ASDIRECTED PRN PRN Reason: Keep Vein Open Spironolactone (Aldactone) 12.5 mg PO DAILY [place] Zolpidem Tartrate (Ambien) 5 mg PO BEDTIME PRN PRN Reason: Sleep Assessment/Plan Comment:: The patient is a 63-year-old gentleman with a history of hypertension, diabetes , chronic kidney disease stage III, chronic systolic congestive heart failure. The patient presented with shortness of breath. Acute hypoxemic respiratory failure noted in the emergency room with oxygen saturations in the 80s on room air. We'll supplement oxygen as needed Acute congestive heart failure secondary to severe systolic dysfunction with ejection fraction of 25-30% Associated with chronic kidney disease stage III Likely due to missing diuretics I will resume diuretics, start with IV Lasix every 8 hours He already received IV dose in the emergency room Continue spironolactone Continue CHELY inhibitor and Coreg Monitor renal function and electrolytes Monitor symptoms Coronary artery disease Continue Plavix, Continue on Eliquis but not on aspirin Continue statin, CHELY inhibitor History of DVT Continue anticoagulation with Eliquis Diabetes Treat with NPH insulin the evening Humalog with meals Supplemental insulin as needed for supplemental scale Hypoglycemia treatment with D50 as needed
[2018-07-07] MEDS: Insulin Isophane NPH, Human 100 Units/ML 10 ML Vial SUBCUT SCH (22:00)
[2018-07-07] MEDS: Zolpidem 5 MG Tab PO PRN (22:31)
[2018-07-08] MEDS: Sodium Chloride 0.9% 10 ML Syringe FLUSH PRN ×2 (06:09→14:24)
[2018-07-08] MEDS: Furosemide 40 MG/4 ML VIAL IVPUSH SCH ×5 (06:09→22:45)
[2018-07-08 06:36] LABS: ANION GAP 15.6
[2018-07-08] MEDS: Insulin Lispro 100 Units/ML 3 ML Vial SUBCUT SCH ×4 (07:43→21:25)
[2018-07-08] MEDS: Gabapentin 300 MG Cap PO SCH ×3 (08:18→21:17)
[2018-07-08] MEDS: Carvedilol 25 MG Tab PO SCH ×2 (08:18→17:36)
[2018-07-08] MEDS: Spironolactone 25 MG Tab PO SCH (08:19)
[2018-07-08] MEDS: Lisinopril 5 MG Tab PO SCH (08:20)
[2018-07-08] MEDS: Clopidogrel 75 MG Tab PO SCH (08:21)
[2018-07-08] MEDS ORDERED: APIXABAN 5 MG PO SCH (09:00)
[2018-07-08] MEDS ORDERED: Insulin Regular, Human 100 Units/ML 3 ML Vial SUBCUT SCH (09:00)
[2018-07-08] MEDS: Insulin Regular, Human 100 Units/ML 3 ML Vial SUBCUT SCH ×2 (09:35→12:19)
--- NOTE | 2018-07-08 10:21 | PCM.PN ---
- General Info Date of Service: 07/08/18 Admission Dx/Problem (Free Text): Admission Diagnosis/Problem Admission Diagnosis/Problem CHF, Congestive heart failure Subjective Update: Feeling better. The mother shortness of breath has improved. Shortness of breath has been worse with laying down. Lower extremity swelling improved. Has been going to the bathroom for urination frequently. No associated chest pain. Functional Status: Reports: Pain Controlled, Tolerating Diet - Review of Systems General: Denies: Fever, Weakness Pulmonary: Reports: Shortness of Breath Cardiovascular: Reports: Edema (Improved). Denies: Chest Pain (Improved), Lightheadedness Neurological: Denies: Confusion - Patient Data Vitals - Most Recent: Last Vital Signs Temp 36.8 C 07/08/18 08:13 Pulse 90 07/08/18 08:18 Resp 20 07/08/18 08:13 BP 142/96 H 07/08/18 08:20 Pulse Ox 90 L 07/08/18 08:13 Weight - Most Recent: 145.512 kg I&O - Last 24 Hours: Intake & Output 07/07/18 07/08/18 07/08/18 22:59 06:59 14:59 Intake Total 440 350 480 Output Total 800 850 800 Balance -360 -500 -320 Lab Results Last 24 Hours: Laboratory Results - last 24 hr 07/07/18 07/07/18 07/07/18 Range/Units 18:55 18:55 18:55 WBC 9.0 (5.0-10.0) 10^3/uL RBC 5.67 (4.6-6.2) 10^6/uL Hgb 16.2 D (14.0-18.0) g/dL Hct 49.1 (40.0-54.0) % MCV 86.6 (80-100) fL MCH 28.6 (27.0-34.0) pg MCHC 33.0 (33.0-35.0) g/dL Plt Count 168 (150-450) 10^3/uL Neut % (Auto) 75.9 H (42.2-75.2) % Lymph % (Auto) 15.5 L (20.5-50.1) % [place] % (Auto) 7.6 (2-8) % Eos % (Auto) 0.9 L (1.0-3.0) % Baso % (Auto) 0.1 (0.0-1.0) % D-Dimer, Quantitative 1330 H (0-400) ng/mL Sodium (135-145) mmol/L Potassium (3.6-5.0) mmol/L Chloride (101-111) mmol/L Carbon Dioxide (21.0-31.0) mmol/L Anion Gap BUN (7-18) mg/dL Creatinine (0.6-1.3) mg/dL Est Cr Clr Drug Dosing mL/min Estimated GFR (MDRD) BUN/Creatinine Ratio Glucose (74-105) mg/dL POC Glucose (70-105) mg/dl Calcium (8.4-10.2) mg/dl Total Bilirubin (0.2-1.0) mg/dL AST (10-42) IU/L ALT (10-60) IU/L Alkaline Phosphatase (42-121) IU/L Troponin I (0.00-0.02) ng/ml B-Natriuretic Peptide 1210 H (0-100) pg/ml Total Protein (6.7-8.2) g/dl Albumin (3.2-5.5) g/dl Globulin Albumin/Globulin Ratio 07/07/18 07/07/18 07/08/18 Range/Units 19:35 21:16 05:45 WBC (5.0-10.0) 10^3/uL RBC (4.6-6.2) 10^6/uL Hgb (14.0-18.0) g/dL Hct (40.0-54.0) % MCV (80-100) fL MCH (27.0-34.0) pg MCHC (33.0-35.0) g/dL Plt Count (150-450) 10^3/uL Neut % (Auto) (42.2-75.2) % Lymph % (Auto) (20.5-50.1) % [place] % (Auto) (2-8) % Eos % (Auto) (1.0-3.0) % Baso % (Auto) (0.0-1.0) % D-Dimer, Quantitative (0-400) ng/mL Sodium 136 138 (135-145) mmol/L Potassium 5.0 3.6 (3.6-5.0) mmol/L Chloride 102 104 (101-111) mmol/L Carbon Dioxide 22.0 22.0 (21.0-31.0) mmol/L Anion Gap 17.0 15.6 BUN 29 H 30 H (7-18) mg/dL Creatinine 1.5 H 1.5 H (0.6-1.3) mg/dL Est Cr Clr Drug Dosing 62.70 62.70 mL/min Estimated GFR (MDRD) 47 47 BUN/Creatinine Ratio 19.33 Glucose 114 H 49 L* (74-105) mg/dL POC Glucose 94 (70-105) mg/dl Calcium 8.8 8.5 (8.4-10.2) mg/dl Total Bilirubin 1.5 H (0.2-1.0) mg/dL AST 25 (10-42) IU/L ALT 27 (10-60) IU/L Alkaline Phosphatase 57 (42-121) IU/L Troponin I 0.06 H* 0.06 H* (0.00-0.02) ng/ml B-Natriuretic Peptide (0-100) pg/ml Total Protein 7.4 (6.7-8.2) g/dl Albumin 3.9 (3.2-5.5) g/dl Globulin 3.5 Albumin/Globulin Ratio 1.11 07/08/18 07/08/18 07/08/18 Range/Units 05:45 07:40 09:18 WBC 8.4 (5.0-10.0) 10^3/uL RBC 4.86 (4.6-6.2) 10^6/uL Hgb 13.9 L D (14.0-18.0) g/dL Hct 42.3 (40.0-54.0) % MCV 87.0 (80-100) fL MCH 28.6 (27.0-34.0) pg MCHC 32.9 L (33.0-35.0) g/dL Plt Count 155 (150-450) 10^3/uL Neut % (Auto) 63.9 (42.2-75.2) % Lymph % (Auto) 22.4 (20.5-50.1) % [place] % (Auto) 12.2 H (2-8) % Eos % (Auto) 1.3 (1.0-3.0) % Baso % (Auto) 0.2 (0.0-1.0) % D-Dimer, Quantitative (0-400) ng/mL Sodium (135-145) mmol/L Potassium (3.6-5.0) mmol/L Chloride (101-111) mmol/L Carbon Dioxide (21.0-31.0) mmol/L Anion Gap BUN (7-18) mg/dL Creatinine (0.6-1.3) mg/dL Est Cr Clr Drug Dosing mL/min Estimated GFR (MDRD) BUN/Creatinine Ratio Glucose (74-105) mg/dL POC Glucose 83 154 H (70-105) mg/dl Calcium (8.4-10.2) mg/dl Total Bilirubin (0.2-1.0) mg/dL AST (10-42) IU/L ALT (10-60) IU/L Alkaline Phosphatase (42-121) IU/L Troponin I (0.00-0.02) ng/ml B-Natriuretic Peptide (0-100) pg/ml Total Protein (6.7-8.2) g/dl Albumin (3.2-5.5) g/dl Globulin Albumin/Globulin Ratio Med Orders - Current: Current Medications Acetaminophen (Tylenol) 650 mg PO Q4H PRN PRN Reason: Pain (Mild 1-3)/fever Last Admin: 07/07/18 22:30 Dose: 650 mg Carvedilol (Coreg) 12.5 mg PO BIDMEALS [facility] Last Admin: 07/08/18 08:18 Dose: 12.5 mg Clopidogrel Bisulfate (Plavix) 75 mg PO DAILY [facility] Last Admin: 07/08/18 08:21 Dose: 75 mg Furosemide (Lasix) 40 mg IVPUSH Q8H [facility] Last Admin: 07/08/18 06:09 Dose: 40 mg Gabapentin (Neurontin) 300 mg PO TID [facility] Last Admin: 07/08/18 08:18 Dose: 300 mg Insulin Human Lispro (Humalog) 0 unit SUBCUT ACBED [facility]; Protocol Last Admin: 07/08/18 07:43 Dose: Not Given Insulin Human NPH (Novolin N) 60 unit SUBCUT BEDTIME [facility] Last Admin: 07/07/18 22:00 Dose: 60 unit Insulin Human Regular (Humulin R) 10 unit SUBCUT TIDMEALS [facility] Lisinopril (Prinivil) 2.5 mg PO DAILY [facility] Last Admin: 07/08/18 08:20 Dose: 2.5 mg Non-Formulary Medication (Apixaban [Eliquis]) 5 mg PO BID [facility] Simvastatin (Zocor) 20 mg PO BEDTIME [facility] Sodium Chloride (Saline Flush) 10 ml FLUSH ASDIRECTED PRN PRN Reason: Keep Vein Open Last Admin: 07/08/18 06:09 Dose: 10 ml Spironolactone (Aldactone) 12.5 mg PO DAILY [facility] Last Admin: 07/08/18 08:19 Dose: 12.5 mg Zolpidem Tartrate (Ambien) 5 mg PO BEDTIME PRN PRN Reason: Sleep Last Admin: 07/07/18 22:31 Dose: 5 mg Discontinued Medications Furosemide (Lasix) 40 mg IVPUSH NOW ONE Stop: 07/07/18 20:07 Last Admin: 07/07/18 20:11 Dose: 40 mg Insulin Human Regular (Humulin R) 20 unit SUBCUT TID [facility] Last Admin: 07/08/18 09:32 Dose: Not Given - Exam Quality Assessment: Supplemental Oxygen (2 L) General: Alert, Oriented Neck: Supple Lungs: Decreased Breath Sounds Cardiovascular: Regular Rate, Regular Rhythm GI/Abdominal Exam: Normal Bowel Sounds, Soft, Non-Tender Extremities: Pedal Edema (2+) - Problem List & Annotations (1) Hypertension SNOMED Code(s): 48393948 Code(s): I10 - ESSENTIAL (PRIMARY) HYPERTENSION Status: Acute Current Visit: Yes (2) Chronic kidney disease, stage III (moderate) SNOMED Code(s): 185646391 Code(s): N18.3 - CHRONIC KIDNEY DISEASE, STAGE 3 (MODERATE) Status: Acute Current Visit: Yes (3) Diabetes SNOMED Code(s): 53994215 Code(s): E11.9 - TYPE 2 DIABETES MELLITUS WITHOUT COMPLICATIONS Status: Acute Current Visit: Yes (4) CHF (congestive heart failure) SNOMED Code(s): 58171424 Code(s): I50.9 - HEART FAILURE, UNSPECIFIED Status: Acute Current Visit: Yes Qualifiers: Heart failure type: unspecified Heart failure chronicity: acute on chronic Qualified Code(s): I50.9 - Heart failure, unspecified - Problem List Review Problem List Initiated/Reviewed/Updated: Yes - My Orders Last 24 Hours: My Active Orders 07/07/18 21:01 Glucose [Blood Glucose Check, Bedside] [RC] QIDACANDBED 07/07/18 21:02 Up With Assistance [RC] ASDIRECTED Acetaminophen [Tylenol] 650 mg PO Q4H PRN Sodium Chloride 0.9% [Saline Flush] 10 ml FLUSH ASDIRECTED PRN Zolpidem [Ambien] 5 mg PO BEDTIME PRN Peripheral IV Insertion Adult [OM.PC] Routine Saline Lock Insert [OM.PC] Routine Resuscitation Status Routine 07/07/18 21:03 Patient Status [ADT] Routine Oxygen Therapy [RC] PRN VTE/DVT Education [RC] PER UNIT ROUTINE Vital Signs [RC] Q4H Antiembolic Hose [OM.PC] Per Unit Routine 07/07/18 21:04 Antiembolic Devices [RC] 09,21 Peripheral IV Care [RC] 09,07/07/18 21:45 Insulin Isophane NPH, Human [NovoLIN N] 60 unit SUBCUT BEDTIME 07/08/18 07:00 Furosemide [Lasix] 40 mg IVPUSH Q8H Insulin Lispro [HumaLOG] See Protocol SUBCUT ACBED 07/08/18 08:00 Carvedilol [Coreg] 12.5 mg PO BIDMEALS Insulin Regular, Human [HumuLIN R] 10 unit SUBCUT TIDMEALS 07/08/18 09:00 Apixaban [Eliquis] 5 mg PO BID Clopidogrel [Plavix] 75 mg PO DAILY Gabapentin [Neurontin] 300 mg PO TID Lisinopril [Prinivil] 2.5 mg PO DAILY Spironolactone [Aldactone] 12.5 mg PO DAILY 07/08/18 21:00 Simvastatin [Zocor] 20 mg PO BEDTIME 07/09/18 05:11 MAGNESIUM [CHEM] AM PHOSPHORUS [CHEM] AM 07/09/18 05:15 BASIC METABOLIC PANEL,BMP [CHEM] AM - Plan Plan:: The patient is a 63-year-old gentleman with a history of hypertension, diabetes , chronic kidney disease stage III, chronic systolic congestive heart failure. The patient presented with shortness of breath. Acute hypoxemic respiratory failure noted in the emergency room with oxygen saturations in the 80s on room air. We'll supplement oxygen as needed Acute congestive heart failure secondary to severe systolic dysfunction with ejection fraction of 25-30% Associated with chronic kidney disease stage III Likely due to missing diuretics resumed diuretics, continue with IV Lasix every 8 hours Continue spironolactone Continue CHELY inhibitor and Coreg Monitor renal function and electrolytes Monitor symptoms Coronary artery disease Continue Plavix, Continue on Eliquis but not on aspirin Continue statin, CHELY inhibitor History of DVT Continue anticoagulation with Eliquis Diabetes Treat with NPH insulin the evening Humalog with meals - cut back dose due to hypoglycemia this morning Supplemental insulin as needed for supplemental scale Hypoglycemia treatment with D50 as needed
[2018-07-08] MEDS ORDERED: 50% Dextrose in Water 50 ML Syringe IVPUSH ONE (16:46)
[2018-07-08] MEDS ORDERED: 50% Dextrose in Water 50 ML Syringe IVPUSH PRN (16:55)
[2018-07-08] MEDS: APIXABAN 5 MG PO SCH (21:16)
[2018-07-08] MEDS: Simvastatin 10 MG Tab PO SCH (21:18)
[2018-07-08] MEDS: Insulin Isophane NPH, Human 100 Units/ML 10 ML Vial SUBCUT SCH (21:27)
[2018-07-09] MEDS: Zolpidem 5 MG Tab PO PRN (00:02)
[2018-07-09 06:58] LABS: ANION GAP 14.8
[2018-07-09] MEDS: Insulin Lispro 100 Units/ML 3 ML Vial SUBCUT SCH ×4 (07:55→21:39)
[2018-07-09] MEDS: Furosemide 40 MG/4 ML VIAL IVPUSH SCH ×2 (08:15→14:36)
[2018-07-09] MEDS: Gabapentin 300 MG Cap PO SCH ×3 (08:15→21:36)
[2018-07-09] MEDS: Clopidogrel 75 MG Tab PO SCH (08:15)
[2018-07-09] MEDS: Carvedilol 25 MG Tab PO SCH ×2 (08:16→17:52)
[2018-07-09] MEDS: Lisinopril 5 MG Tab PO SCH (08:16)
[2018-07-09] MEDS: Spironolactone 25 MG Tab PO SCH (08:17)
[2018-07-09] MEDS: APIXABAN 5 MG PO SCH ×2 (08:26→21:42)
--- NOTE | 2018-07-09 09:51 | PCM.PN ---
- General Info Date of Service: 07/09/18 Admission Dx/Problem (Free Text): Admission Diagnosis/Problem Admission Diagnosis/Problem CHF, Congestive heart failure Subjective Update: Feeling better. The mother shortness of breath has improved. Shortness of breath has been worse with laying down but this has basically resolved. Lower extremity swelling continues to improve. No associated chest pain. Has had repeated symptomatic hypoglycemia episodes in the mornings. We again reviewed what is his insulin regimen at home. I have also reviewed from [facility] the notes from Dr. Reich. The patient used to be on Levemir but it was very expensive and was changed to 60 units of NPH every evening. It appears that at home he does not have hypoglycemia but the every morning here he is going low, Feeling shaky, lightheaded. Functional Status: Reports: Pain Controlled, Tolerating Diet - Review of Systems General: Denies: Fever Pulmonary: Reports: Shortness of Breath (Improved) Cardiovascular: Reports: Edema (Still present). Denies: Chest Pain Neurological: Denies: Confusion Psychiatric: Denies: Depression - Patient Data Vitals - Most Recent: Last Vital Signs Temp 36.8 C 07/09/18 09:38 Pulse 80 07/09/18 09:38 Resp 26 H 07/09/18 07:07 BP 95/67 07/09/18 09:38 Pulse Ox 99 07/09/18 09:38 Weight - Most Recent: 146.828 kg I&O - Last 24 Hours: Intake & Output 07/08/18 07/09/18 07/09/18 22:59 06:59 14:59 Intake Total 760 Output Total 1200 900 Balance -440 -900 Lab Results Last 24 Hours: Laboratory Results - last 24 hr 07/08/18 07/08/18 07/08/18 Range/Units 11:45 15:58 16:39 Sodium (135-145) mmol/L Potassium (3.6-5.0) mmol/L Chloride (101-111) mmol/L Carbon Dioxide (21.0-31.0) mmol/L Anion Gap BUN (7-18) mg/dL Creatinine (0.6-1.3) mg/dL Est Cr Clr Drug Dosing mL/min Estimated GFR (MDRD) Glucose (74-105) mg/dL POC Glucose 109 H 52 L 59 L (70-105) mg/dl Calcium (8.4-10.2) mg/dl Phosphorus (2.5-4.6) mg/dL Magnesium (1.8-2.5) mg/dL 07/08/18 07/08/18 07/09/18 Range/Units 17:34 21:02 05:40 Sodium 136 (135-145) mmol/L Potassium 3.8 (3.6-5.0) mmol/L Chloride 100 L (101-111) mmol/L Carbon Dioxide 25.0 (21.0-31.0) mmol/L Anion Gap 14.8 BUN 34 H (7-18) mg/dL Creatinine 1.7 H (0.6-1.3) mg/dL Est Cr Clr Drug Dosing 55.32 mL/min Estimated GFR (MDRD) 41 Glucose 40 L* (74-105) mg/dL POC Glucose 102 238 H (70-105) mg/dl Calcium 8.2 L (8.4-10.2) mg/dl Phosphorus 4.7 H (2.5-4.6) mg/dL Magnesium 1.6 L (1.8-2.5) mg/dL 07/09/18 07/09/18 07/09/18 Range/Units 06:18 06:50 07:31 Sodium (135-145) mmol/L Potassium (3.6-5.0) mmol/L Chloride (101-111) mmol/L Carbon Dioxide (21.0-31.0) mmol/L Anion Gap BUN (7-18) mg/dL Creatinine (0.6-1.3) mg/dL Est Cr Clr Drug Dosing mL/min Estimated GFR (MDRD) Glucose (74-105) mg/dL POC Glucose 37 L* 128 H 136 H (70-105) mg/dl Calcium (8.4-10.2) mg/dl Phosphorus (2.5-4.6) mg/dL Magnesium (1.8-2.5) mg/dL 07/09/18 Range/Units 09:29 Sodium (135-145) mmol/L Potassium (3.6-5.0) mmol/L Chloride (101-111) mmol/L Carbon Dioxide (21.0-31.0) mmol/L Anion Gap BUN (7-18) mg/dL Creatinine (0.6-1.3) mg/dL Est Cr Clr Drug Dosing mL/min Estimated GFR (MDRD) Glucose (74-105) mg/dL POC Glucose 127 H (70-105) mg/dl Calcium (8.4-10.2) mg/dl Phosphorus (2.5-4.6) mg/dL Magnesium (1.8-2.5) mg/dL Med Orders - Current: Current Medications Acetaminophen (Tylenol) 650 mg PO Q4H PRN PRN Reason: Pain (Mild 1-3)/fever Last Admin: 07/07/18 22:30 Dose: 650 mg Carvedilol (Coreg) 12.5 mg PO BIDMEALS [facility] Last Admin: 07/09/18 08:16 Dose: 12.5 mg Clopidogrel Bisulfate (Plavix) 75 mg PO DAILY [facility] Last Admin: 07/09/18 08:15 Dose: 75 mg Dextrose/Water (Dextrose 50% In Water) 50 ml IVPUSH ONETIME PRN PRN Reason: Blood Glucose Last Admin: 07/09/18 06:26 Dose: 50 ml Furosemide (Lasix) 40 mg IVPUSH Q8H [facility] Last Admin: 07/09/18 08:15 Dose: 40 mg Gabapentin (Neurontin) 300 mg PO TID [facility] Last Admin: 07/09/18 08:15 Dose: 300 mg Insulin Human Lispro (Humalog) 0 unit SUBCUT ACBED [facility]; Protocol Last Admin: 07/09/18 07:55 Dose: Not Given Insulin Human NPH (Novolin N) 40 unit SUBCUT BEDTIME [facility] Lisinopril (Prinivil) 2.5 mg PO DAILY [facility] Last Admin: 07/09/18 08:16 Dose: 2.5 mg Magnesium Oxide (Magnesium Oxide) 250 mg PO BIDM [facility] Stop: 07/10/18 08:01 Apixaban [Eliquis] 5 (Mg Own Med) 0 mg PO BID [facility] Last Admin: 07/09/18 08:26 Dose: 5 mg Simvastatin (Zocor) 20 mg PO BEDTIME [facility] Last Admin: 07/08/18 21:18 Dose: 20 mg Sodium Chloride (Saline Flush) 10 ml FLUSH ASDIRECTED PRN PRN Reason: Keep Vein Open Last Admin: 07/08/18 14:24 Dose: 10 ml Spironolactone (Aldactone) 12.5 mg PO DAILY [facility] Last Admin: 07/09/18 08:17 Dose: 12.5 mg Zolpidem Tartrate (Ambien) 5 mg PO BEDTIME PRN PRN Reason: Sleep Last Admin: 07/09/18 00:02 Dose: 5 mg Discontinued Medications Dextrose/Water (Dextrose 50% In Water) 50 ml IVPUSH ONETIME ONE Stop: 07/08/18 16:47 Last Admin: 07/08/18 17:02 Dose: 50 ml Furosemide (Lasix) 40 mg IVPUSH NOW ONE Stop: 07/07/18 20:07 Last Admin: 07/07/18 20:11 Dose: 40 mg Insulin Human NPH (Novolin N) 60 unit SUBCUT BEDTIME [facility] Last Admin: 07/08/18 21:27 Dose: 60 unit Insulin Human Regular (Humulin R) 20 unit SUBCUT TID [facility] Last Admin: 07/08/18 09:32 Dose: Not Given Insulin Human Regular (Humulin R) 10 unit SUBCUT TIDMEALS [facility] Last Admin: 07/08/18 12:19 Dose: 10 units Apixaban [Eliquis] 5 (Mg Own Med) 0 mg PO BID [facility] Last Admin: 07/08/18 19:26 Dose: Not Given - Exam General: Alert, Oriented Neck: Supple Lungs: Normal Respiratory Effort, Decreased Breath Sounds Cardiovascular: Regular Rate, Regular Rhythm GI/Abdominal Exam: Normal Bowel Sounds, Soft, Non-Tender Extremities: Pedal Edema (2+ bilateral) - Problem List & Annotations (1) Hypertension SNOMED Code(s): 50904429 Code(s): I10 - ESSENTIAL (PRIMARY) HYPERTENSION Status: Acute Current Visit: Yes (2) Chronic kidney disease, stage III (moderate) SNOMED Code(s): 005379911 Code(s): N18.3 - CHRONIC KIDNEY DISEASE, STAGE 3 (MODERATE) Status: Acute Current Visit: Yes (3) Diabetes SNOMED Code(s): 57140472 Code(s): E11.9 - TYPE 2 DIABETES MELLITUS WITHOUT COMPLICATIONS Status: Acute Current Visit: Yes (4) CHF (congestive heart failure) SNOMED Code(s): 25651120 Code(s): I50.9 - HEART FAILURE, UNSPECIFIED Status: Acute Current Visit: Yes Qualifiers: Heart failure type: unspecified Heart failure chronicity: acute on chronic Qualified Code(s): I50.9 - Heart failure, unspecified (5) Hypoglycemia SNOMED Code(s): 900985661 Code(s): E16.2 - HYPOGLYCEMIA, UNSPECIFIED Status: Acute Current Visit: Yes - Problem List Review Problem List Initiated/Reviewed/Updated: Yes - My Orders Last 24 Hours: My Active Orders 07/08/18 09:00 Clopidogrel [Plavix] 75 mg PO DAILY Gabapentin [Neurontin] 300 mg PO TID Lisinopril [Prinivil] 2.5 mg PO DAILY Spironolactone [Aldactone] 12.5 mg PO DAILY 07/08/18 16:55 Dextrose 50% in Water 50 ml IVPUSH ONETIME PRN 07/08/18 21:00 Apixaban [Eliquis] 0 mg PO BID Simvastatin [Zocor] 20 mg PO BEDTIME 07/09/18 18:00 Magnesium Oxide 250 mg PO BIDM 07/09/18 21:00 Insulin Isophane NPH, Human [NovoLIN N] 40 unit SUBCUT BEDTIME - Plan Plan:: The patient is a 63-year-old gentleman with a history of hypertension, diabetes , chronic kidney disease stage III, chronic systolic congestive heart failure. The patient presented with shortness of breath. Acute hypoxemic respiratory failure noted in the emergency room with oxygen saturations in the 80s on room air. Improved We'll supplement oxygen as needed Acute congestive heart failure secondary to severe systolic dysfunction with ejection fraction of 25-30% Associated with chronic kidney disease stage III Likely due to missing diuretics resumed diuretics, continue with IV Lasix every 8 hours Continue spironolactone Continue CHELY inhibitor and Coreg Monitor renal function and electrolytes - baseline creatinine around 1.8 1.9 Monitor symptoms Coronary artery disease Continue Plavix, Continue on Eliquis but not on aspirin Continue statin, CHELY inhibitor History of DVT Continue anticoagulation with Eliquis Diabetes Treat with NPH insulin the evening Humalog with meals - cut back NPH dose due to hypoglycemia in the mornings Supplemental insulin as needed for supplemental scale Hypoglycemia treatment with D50 as needed
[2018-07-09] MEDS ORDERED: Insulin Isophane NPH, Human 100 Units/ML 10 ML Vial SUBCUT SCH (21:00)
[2018-07-09] MEDS: Simvastatin 10 MG Tab PO SCH (21:36)
[2018-07-10 07:09] LABS: ANION GAP 16.4
[2018-07-10] MEDS: Insulin Lispro 100 Units/ML 3 ML Vial SUBCUT SCH ×2 (08:00→11:30)
[2018-07-10] MEDS ORDERED: Furosemide 40 MG Tab PO SCH ×2 (09:00→10:15)
[2018-07-10] MEDS: Carvedilol 25 MG Tab PO SCH (09:31)
[2018-07-10] MEDS: Spironolactone 25 MG Tab PO SCH (09:32)
[2018-07-10] MEDS: Lisinopril 5 MG Tab PO SCH (09:33)
[2018-07-10] MEDS: Gabapentin 300 MG Cap PO SCH (09:34)
[2018-07-10] MEDS: Clopidogrel 75 MG Tab PO SCH (09:36)
[2018-07-10] MEDS: APIXABAN 5 MG PO SCH (09:38)
--- NOTE | 2018-07-10 10:13 | PCM.DCSUM1 ---
Discharge Summary - Hospital Course Free Text/Narrative:: The patient is a 63-year-old gentleman with a history of hypertension, diabetes , chronic kidney disease stage III, chronic systolic congestive heart failure. The patient presented with shortness of breath. Acute hypoxemic respiratory failure noted in the emergency room with oxygen saturations in the 80s on room air. resolved, off oxygen Acute congestive heart failure secondary to severe systolic dysfunction with ejection fraction of 25-30% Associated with chronic kidney disease stage III Likely due to missing diuretics resumed diuretics, increased Lasix to BID 40 mg increased spironolactone to 25 mg Continue CHELY inhibitor and Coreg Monitor renal function and electrolytes periodically - baseline creatinine around 1.8 1.9 Coronary artery disease Continue Plavix, Continue on Eliquis but not on aspirin Continue statin, CHELY inhibitor History of DVT Continue anticoagulation with Eliquis Diabetes Treat with NPH insulin the evening Humalog with meals - cut back NPH dose due to hypoglycemia in the mornings Hypoglycemia treatment discussed with pt Diagnosis: Stroke: No - Discharge Data Discharge Date: 07/10/18 Discharge Disposition: Home, Self-Care 01 Condition: Fair - Discharge Diagnosis/Problem(s) (1) Hypertension SNOMED Code(s): 12024450 ICD Code: I10 - ESSENTIAL (PRIMARY) HYPERTENSION Status: Acute Current Visit: Yes (2) Chronic kidney disease, stage III (moderate) SNOMED Code(s): 819965631 ICD Code: N18.3 - CHRONIC KIDNEY DISEASE, STAGE 3 (MODERATE) Status: Acute Current Visit: Yes (3) Diabetes SNOMED Code(s): 56793838 ICD Code: E11.9 - TYPE 2 DIABETES MELLITUS WITHOUT COMPLICATIONS Status: Acute Current Visit: Yes (4) CHF (congestive heart failure) SNOMED Code(s): 45956403 ICD Code: I50.9 - HEART FAILURE, UNSPECIFIED Status: Acute Current Visit : Yes Qualifiers: Heart failure type: systolic Heart failure chronicity: acute on chronic Qualified Code(s): I50.23 - Acute on chronic systolic (congestive) heart failure (5) Hypoglycemia SNOMED Code(s): 114241111 ICD Code: E16.2 - HYPOGLYCEMIA, UNSPECIFIED Status: Acute Current Visit: Yes - Patient Instructions Diet: Heart Healthy Diet Activity: As Tolerated - Discharge Plan *PRESCRIPTION DRUG MONITORING PROGRAM REVIEWED*: Not Applicable *COPY OF PRESCRIPTION DRUG MONITORING REPORT IN PATIENT KEL: Not Applicable Prescriptions/Med Rec: Furosemide [Lasix] 40 mg PO BID #60 tablet Home Medications: Home Meds Carvedilol [Coreg] 12.5 mg PO BIDMEALS 05/17/18 [History] Gabapentin [Neurontin] 300 mg PO TID 05/17/18 [History] Inulin/Chromium Picolinate [Fiber Gummies] 2 tab PO DAILY 05/17/18 [History] Simvastatin [Zocor] 20 mg PO BEDTIME 05/17/18 [History] Apixaban [Eliquis] 5 mg PO BID 06/04/18 [History] Clopidogrel [Plavix] 75 mg PO DAILY 07/07/18 [History] Lisinopril 2.5 mg PO DAILY 07/07/18 [History] Furosemide [Lasix] 40 mg PO BID #60 tablet 07/10/18 [Rx] Insulin Isophane NPH, Human [NovoLIN N] 40 unit SUBCUT BEDTIME vial 07/10/18 [ Rx] Spironolactone [Aldactone] 1 tab PO DAILY #0 07/10/18 [Rx] Referrals: Kelli Luciano PA [Primary Care Provider] - (in 2-3 days) - Discharge Summary/Plan Comment DC Time >30 min.: No - General Info Date of Service: 07/10/18 Subjective Update: Feeling better. shortness of breath have resolved. Lower extremity swelling continues to improve. No associated chest pain. no further symptomatic hypoglycemia episode - Review of Systems General: Denies: Fever Pulmonary: Denies: Shortness of Breath Cardiovascular: Reports: Edema. Denies: Chest Pain Neurological: Denies: Confusion - Patient Data Vitals - Most Recent: Last Vital Signs Temp 36.8 C 07/10/18 08:00 Pulse 86 07/10/18 09:31 Resp 18 07/10/18 08:00 BP 100/72 07/10/18 09:33 Pulse Ox 97 07/10/18 08:00 Weight - Most Recent: 148.948 kg I&O - Last 24 hours: Intake & Output 07/09/18 07/10/18 07/10/18 22:59 06:59 14:59 Intake Total 325 850 360 Output Total 1500 900 Balance -1175 -50 360 Lab Results - Last 24 hrs: Laboratory Results - last 24 hr 07/09/18 07/09/18 07/09/18 Range/Units 11:44 16:59 21:08 Sodium (135-145) mmol/L Potassium (3.6-5.0) mmol/L Chloride (101-111) mmol/L Carbon Dioxide (21.0-31.0) mmol/L Anion Gap BUN (7-18) mg/dL Creatinine (0.6-1.3) mg/dL Est Cr Clr Drug Dosing mL/min Estimated GFR (MDRD) Glucose (74-105) mg/dL POC Glucose 158 H 170 H 173 H (70-105) mg/dl Calcium (8.4-10.2) mg/dl 07/10/18 07/10/18 07/10/18 Range/Units 02:19 06:20 07:50 Sodium 132 L (135-145) mmol/L Potassium 4.4 (3.6-5.0) mmol/L Chloride 95 L (101-111) mmol/L Carbon Dioxide 25.0 (21.0-31.0) mmol/L Anion Gap 16.4 BUN 36 H (7-18) mg/dL Creatinine 1.8 H (0.6-1.3) mg/dL Est Cr Clr Drug Dosing 52.25 mL/min Estimated GFR (MDRD) 38 Glucose 118 H (74-105) mg/dL POC Glucose 167 H 94 (70-105) mg/dl Calcium 8.3 L (8.4-10.2) mg/dl Med Orders - Current: Current Medications Acetaminophen (Tylenol) 650 mg PO Q4H PRN PRN Reason: Pain (Mild 1-3)/fever Last Admin: 07/07/18 22:30 Dose: 650 mg Carvedilol (Coreg) 12.5 mg PO BIDMEALS [facility] Last Admin: 07/10/18 09:31 Dose: 12.5 mg Clopidogrel Bisulfate (Plavix) 75 mg PO DAILY [facility] Last Admin: 07/10/18 09:36 Dose: 75 mg Dextrose/Water (Dextrose 50% In Water) 50 ml IVPUSH ONETIME PRN PRN Reason: Blood Glucose Last Admin: 07/09/18 06:26 Dose: 50 ml Furosemide (Lasix) 40 mg PO BIDDIURETIC [facility] Gabapentin (Neurontin) 300 mg PO TID [facility] Last Admin: 07/10/18 09:34 Dose: 300 mg Insulin Human Lispro (Humalog) 0 unit SUBCUT ACBED [facility]; Protocol Last Admin: 07/10/18 08:00 Dose: Not Given Insulin Human NPH (Novolin N) 40 unit SUBCUT BEDTIME [facility] Last Admin: 07/09/18 21:37 Dose: 40 units Lisinopril (Prinivil) 2.5 mg PO DAILY [facility] Last Admin: 07/10/18 09:33 Dose: 2.5 mg Apixaban [Eliquis] 5 (Mg Own Med) 0 mg PO BID [facility] Last Admin: 07/10/18 09:38 Dose: 5 mg Simvastatin (Zocor) 20 mg PO BEDTIME [facility] Last Admin: 07/09/18 21:36 Dose: 20 mg Sodium Chloride (Saline Flush) 10 ml FLUSH ASDIRECTED PRN PRN Reason: Keep Vein Open Last Admin: 07/08/18 14:24 Dose: 10 ml Spironolactone (Aldactone) 12.5 mg PO DAILY [facility] Last Admin: 07/10/18 09:32 Dose: 12.5 mg Zolpidem Tartrate (Ambien) 5 mg PO BEDTIME PRN PRN Reason: Sleep Last Admin: 07/09/18 00:02 Dose: 5 mg Discontinued Medications Dextrose/Water (Dextrose 50% In Water) 50 ml IVPUSH ONETIME ONE Stop: 07/08/18 16:47 Last Admin: 07/08/18 17:02 Dose: 50 ml Furosemide (Lasix) 40 mg IVPUSH NOW ONE Stop: 07/07/18 20:07 Last Admin: 07/07/18 20:11 Dose: 40 mg Furosemide (Lasix) 40 mg IVPUSH Q8H [facility] Last Admin: 07/09/18 14:36 Dose: 40 mg Furosemide (Lasix) 40 mg PO DAILY [facility] Last Admin: 07/10/18 09:34 Dose: 40 mg Insulin Human NPH (Novolin N) 60 unit SUBCUT BEDTIME [facility] Last Admin: 07/08/18 21:27 Dose: 60 unit Insulin Human Regular (Humulin R) 20 unit SUBCUT TID [facility] Last Admin: 07/08/18 09:32 Dose: Not Given Insulin Human Regular (Humulin R) 10 unit SUBCUT TIDMEALS [facility] Last Admin: 07/08/18 12:19 Dose: 10 units Magnesium Oxide (Magnesium Oxide) 250 mg PO BIDM [facility] Stop: 07/10/18 08:01 Last Admin: 07/10/18 09:35 Dose: 250 mg Apixaban [Eliquis] 5 (Mg Own Med) 0 mg PO BID [facility] Last Admin: 07/08/18 19:26 Dose: Not Given - Exam General: Reports: Alert, Oriented Neck: Reports: Supple Lungs: Reports: Clear to Auscultation, Normal Respiratory Effort Cardiovascular: Reports: Regular Rate, Regular Rhythm GI/Abdominal Exam: Normal Bowel Sounds, Soft, Non-Tender Extremities: Pedal Edema (2+ b/l)
== END 2018-07-10 13:44 | disposition home or self-care (01) | DRG 291 ==
LOC: DL.ED 18:45 → UNDOADMIN 20:25 → DL.MS 20:25
PROVIDERS: ADMIT Internal Medicine; ATTEND Internal Medicine
DX: I13.0 Hypertensive heart and chronic kidney disease with heart failure and stage 1 through stage 4 chronic kidney disease, or unspecified chronic kidney disease (principal); I50.23 Acute on chronic systolic (congestive) heart failure; J96.01 Acute respiratory failure with hypoxia; E11.22 Type 2 diabetes mellitus with diabetic chronic kidney disease; N18.3 Chronic kidney disease, stage 3 (moderate); I25.10 Atherosclerotic heart disease of native coronary artery without angina pectoris; H91.90 Unspecified hearing loss, unspecified ear; H54.7 Unspecified visual loss; E66.9 Obesity, unspecified; E11.649 Type 2 diabetes mellitus with hypoglycemia without coma; E78.5 Hyperlipidemia, unspecified; Z86.718 Personal history of other venous thrombosis and embolism; I25.2 Old myocardial infarction; Z79.4 Long term (current) use of insulin; Z79.899 Other long term (current) drug therapy; Z68.38 Body mass index [BMI] 38.0-38.9, adult
CPT/HCPCS: 36415; 71046; 80048; 80053; 82962; 83735; 83880; 84100; 84484; 85025; 85379; 93005; 96374; 99285-25; A9270-GY; J1815; J1815-GY; J1940; J7060

== ENCOUNTER 2019-01-30 16:20 | Inpatient (IN) | payer MEDICARE ==
[2019-01-30 17:07] LABS: ANION GAP 15.3
--- NOTE | 2019-01-30 17:11 | CR ---
EXAMINATION: Chest 2V SEX: Male AGE: 64 years CLINICAL HISTORY: 64-year-old male who is clinically SHORT OF BREATH. INTERPRETATION: (PA lateral chest) 1. New cardiac pacemaker (compared to 07 July 2018). 2. Chronic CARDIOMEGALY and mild cephalization of vascular flow but relatively less congestion and no signs of alveolar edema or dependent new pleural fluid accumulation since 07 July or earlier PA film for June 2018. 3. Chronic prominence of the proximal pulmonary artery segments and subtle left suprahilar nodular density. Pseudotumor? Chronic dependent left pleural effusion and/or pleural reactive changes confirmed on CT scan chest, 17 May 2018. 4. No new focal lobar infiltrate or atelectasis. CONCLUSION: Cardiomegaly and chronic abnormal pleural reactive changes left base. Cardiac pacer leads intact. No alveolar edema.
--- NOTE | 2019-01-30 17:47 | EDM.PDOC ---
ED HPI GENERAL MEDICAL PROBLEM - General Chief Complaint: Cardiovascular Problem Stated Complaint: SOB/GAINED WT OVERNIGHT Time Seen by Provider: 01/30/19 17:30 Source of Information: Reports: Patient History Limitations: Reports: No Limitations - History of Present Illness INITIAL COMMENTS - FREE TEXT/NARRATIVE: This 64 yo male patient reports to the ED due to increased shortness of breath and a 6 pound weight gain over the past 24 hours. The patient reports he has been taking his Bumex as prescribed and also took a dose of Metolazone this morning. Throughout the day, the patient reports he has only had to urinate 1 time. The patient reports he contacted his sales support advisor and was advised to come to the ED to get additional medications to remove water. Onset: Today Duration: Constant, Getting Worse Location: Reports: Generalized Quality: Reports: Other Severity: Moderate Improves with: Reports: None Worsens with: Reports: None Context: Reports: Other Associated Symptoms: Reports: Shortness of Breath - Related Data Allergies Allergy/AdvReac Type Severity Reaction Status Date / Time No Known Allergies Allergy Verified 07/07/18 19:59 Home Meds: Home Meds Carvedilol [Coreg] 3.125 mg PO BIDMEALS 05/17/18 [History] Gabapentin [Neurontin] 300 mg PO TID 05/17/18 [History] Inulin/Chromium Picolinate [Fiber Gummies] 2 tab PO DAILY 05/17/18 [History] Simvastatin [Zocor] 20 mg PO BEDTIME 05/17/18 [History] Apixaban [Eliquis] 2.5 mg PO BID 06/04/18 [History] Clopidogrel [Plavix] 75 mg PO DAILY 07/07/18 [History] Bumetanide [Bumex] 2 mg PO BID 01/30/19 [History] Insulin Aspart [NovoLOG] 12 - 20 units SUBCUT TIDMEALS 01/30/19 [History] Insulin Isophane NPH, Human [NovoLIN N] 60 unit SUBCUT BEDTIME 01/30/19 [History ] metOLazone [Metolazone] 5 mg PO ASDIRECTED PRN 01/30/19 [History] Past Medical History HEENT History: Reports: Hard of Hearing, Impaired Vision Other HEENT History: wars glasses Cardiovascular History: Reports: Blood Clots/VTE/DVT, High Cholesterol, Hypertension, [place], Pacemaker, Stents Other Cardiovascular History: EF 25%. PPM with AICD placed 07/2018 Respiratory History: Reports: None Gastrointestinal History: Reports: None Other Gastrointestinal History: possible acid reflux Genitourinary History: Reports: None Other Genitourinary History: Stage 3 chronic kidney disease. Musculoskeletal History: Reports: Arthritis Other Musculoskeletal History: hands Neurological History: Reports: None Other Neuro History: shingles right side of head Psychiatric History: Reports: None Endocrine/Metabolic History: Reports: Diabetes, Type II, Obesity/BMI 30+ Hematologic History: Reports: None Immunologic History: Reports: None Oncologic (Cancer) History: Reports: None Dermatologic History: Reports: None - Infectious Disease History Infectious Disease History: Reports: None Social & Family History - Family History Family Medical History: Noncontributory Cardiac: Reports: High Cholesterol, Hypertension Other Cardiac Family History: grandfather, brother Neurological: Reports: CVA Other Neurological Family History: dad, grandmother, brother Oncologic: Reports: Colon Other Oncologic Family History: mother - Tobacco Use Smoking Status *Q: Never Smoker - Caffeine Use Caffeine Use: Reports: Tea Caffeine Use Comment: 1 gallon caffeinated tea every three day. - Recreational Drug Use Recreational Drug Use: No ED ROS GENERAL - Review of Systems Review Of Systems: ROS reveals no pertinent complaints other than HPI. ED EXAM, GENERAL - Physical Exam Exam: See Below Exam Limited By: No Limitations General Appearance: Alert, WD/WN, Mild Distress, Obese Eye Exam: Bilateral Eye: EOMI, Normal Inspection, PERRL Ears: Normal External Exam, Normal Canal, Hearing Grossly Normal, Normal TMs Nose: Normal Inspection, Normal Mucosa, No Blood Throat/Mouth: Normal Inspection, Normal Lips, Normal Teeth, Normal Gums, Normal Oropharynx, Normal Voice, No Airway Compromise Head: Atraumatic, Normocephalic Neck: Normal Inspection, Supple, Non-Tender, Full Range of Motion Respiratory/Chest: No Respiratory Distress, Lungs Clear, Normal Breath Sounds, No Accessory Muscle Use, Chest Non-Tender Cardiovascular: Normal Peripheral Pulses, Regular Rate, Rhythm, No Edema, No Gallop, No JVD, No Murmur, No Rub GI/Abdominal: Normal Bowel Sounds, Soft, Non-Tender, No Organomegaly, No Distention, No Abnormal Bruit, No Mass, Pelvis Stable (Male) Exam: Deferred Rectal (Males) Exam: Deferred Back Exam: Normal Inspection, Full Range of Motion, NT Extremities: Pedal Edema Neurological: Alert, Oriented, CN II-XII Intact, Normal Cognition, Normal Gait Psychiatric: Normal Affect, Normal Mood Skin Exam: Warm, Dry, Intact, Normal Color, No Rash Lymphatic: No Adenopathy Course - Vital Signs Last Recorded V/S: Last Vital Signs Temp 36.3 C 01/30/19 17:45 Pulse 92 01/30/19 17:45 Resp 24 H 01/30/19 17:45 BP 107/88 01/30/19 17:45 Pulse Ox 96 01/30/19 17:45 - Orders/Labs/Meds Orders: Active Orders 24 hr Category Date Time Status EKG Documentation Completion [RC] URGENT Care 01/30/19 16:23 Active Bumetanide [Bumex] Med 01/30/19 18:42 Once 2 mg IVPUSH ONETIME ONE Labs: Laboratory Tests 01/30/19 01/30/19 01/30/19 Range/Units 16:41 16:41 16:41 WBC 7.6 (5.0-10.0) 10^3/uL RBC 5.32 (4.6-6.2) 10^6/uL Hgb 15.6 D (14.0-18.0) g/dL Hct 47.9 (40.0-54.0) % MCV 90.0 D (80-100) fL MCH 29.3 (27.0-34.0) pg MCHC 32.6 L (33.0-35.0) g/dL Plt Count 212 (150-450) 10^3/uL Neut % (Auto) 64.0 (42.2-75.2) % Lymph % (Auto) 21.8 (20.5-50.1) % [place] % (Auto) 11.3 H (2-8) % Eos % (Auto) 2.5 (1.0-3.0) % Baso % (Auto) 0.4 (0.0-1.0) % D-Dimer, Quantitative 901 H (0-400) ng/mL Sodium 134 L (135-145) mmol/L Potassium 4.3 (3.6-5.0) mmol/L Chloride 90 L (101-111) mmol/L Carbon Dioxide 33.0 H (21.0-31.0) mmol/L Anion Gap 15.3 BUN 47 H (7-18) mg/dL Creatinine 1.9 H (0.6-1.3) mg/dL Est Cr Clr Drug Dosing 48.85 mL/min Estimated GFR (MDRD) 36 BUN/Creatinine Ratio 24.73 Glucose 165 H (74-105) mg/dL Calcium 8.7 (8.4-10.2) mg/dl Total Bilirubin 1.7 H (0.2-1.0) mg/dL AST 22 (10-42) IU/L ALT 20 (10-60) IU/L Alkaline Phosphatase 60 (42-121) IU/L Troponin I 0.05 H* (0.00-0.02) ng/ml B-Natriuretic Peptide 799 H (0-100) pg/ml Total Protein 6.8 (6.7-8.2) g/dl Albumin 3.5 (3.2-5.5) g/dl Globulin 3.3 Albumin/Globulin Ratio 1.06 Departure - Departure Time of Disposition: 18:42 Disposition: Admitted As Inpatient 65 Condition: Fair Clinical Impression: Chronic kidney disease, stage III (moderate), Elevated troponin CHF (congestive heart failure) Qualifiers: Heart failure type: systolic Heart failure chronicity: acute on chronic Qualified Code(s): I50.23 - Acute on chronic systolic (congestive) heart failure Diabetes Qualifiers: Diabetes mellitus type: type 1 Diabetes mellitus complication status: without complication Qualified Code(s): E10.9 - Type 1 diabetes mellitus without complications Forms: ED Department Discharge Care Plan Goals: Discussed the patient's history, examination and lab results with Dr. Brantley. Dr. Brantley accepted the patient for continued evaluation and management as an inpatient at . - My Orders Last 24 Hours: My Active Orders 01/30/19 16:23 EKG Documentation Completion [RC] URGENT 01/30/19 18:42 Bumetanide [Bumex] 2 mg IVPUSH ONETIME ONE - Assessment/Plan Last 24 Hours: My Active Orders 01/30/19 16:23 EKG Documentation Completion [RC] URGENT 01/30/19 18:42 Bumetanide [Bumex] 2 mg IVPUSH ONETIME ONE
[2019-01-30] MEDS ORDERED: Bumetanide 1 MG/4 ML MDV IVPUSH ONE (18:42)
[2019-01-30] MEDS ORDERED: Acetaminophen 325 MG Tab PO PRN (19:45)
[2019-01-30] MEDS ORDERED: Docusate Sodium 100 MG Cap PO PRN (19:45)
[2019-01-30] MEDS ORDERED: Gabapentin 300 MG Cap PO PRN (20:02)
--- NOTE | 2019-01-30 20:06 | PCM.HP ---
H&P History of Present Illness - General Date of Service: 01/30/19 Admit Problem/Dx: Admission Diagnosis/Problem Admission Diagnosis/Problem CHF, Congestive heart failure Source of Information: Patient History Limitations: Reports: No Limitations - History of Present Illness Initial Comments - Free Text/Narative: Rudi is a 64-year-old male with past medical history of hypertension, diabetes , CAD, CHF. Patient presented to the ED complaining of increasing shortness of breath and weight gain. He reports about 6 pound weight gain over the past 24 hours. Patient is on Bumex and metolazone for diuretics. He said he's been taking his medication but he is not making adequate urine. He call his customer relations assistant who advised him to come to the ED for additional diuretics. Patient denies orthopnea, PND, increased swelling. He knows chronic cough which has not changed from baseline. He has no fever or chills. He however reports fullness in the abdomen and he thinks he is retaining fluid. His vitals in the ED were stable. Labs revealed BNP of 717. He received IV bumex in the ED. He will be admitted for further management. Onset of Symptoms: Reports: Gradual Improves with: Reports: None Worsens with: Reports: None Associated Symptoms: Reports: No Other Symptoms - Related Data Allergies/Adverse Reactions: Allergies Allergy/AdvReac Type Severity Reaction Status Date / Time No Known Allergies Allergy Verified 01/30/19 19:04 Home Medications: Home Meds Carvedilol [Coreg] 3.125 mg PO BIDMEALS 05/17/18 [History] Gabapentin [Neurontin] 300 mg PO TID 05/17/18 [History] Inulin/Chromium Picolinate [Fiber Gummies] 2 tab PO DAILY 05/17/18 [History] Simvastatin [Zocor] 20 mg PO BEDTIME 05/17/18 [History] Apixaban [Eliquis] 2.5 mg PO BID 06/04/18 [History] Clopidogrel [Plavix] 75 mg PO DAILY 07/07/18 [History] Bumetanide [Bumex] 2 mg PO BID 01/30/19 [History] Insulin Aspart [NovoLOG] 12 - 20 units SUBCUT TIDMEALS 01/30/19 [History] Insulin Isophane NPH, Human [NovoLIN N] 60 unit SUBCUT BEDTIME 01/30/19 [History ] metOLazone [Metolazone] 5 mg PO ASDIRECTED PRN 01/30/19 [History] Past Medical History HEENT History: Reports: Hard of Hearing, Impaired Vision Other HEENT History: wars glasses Cardiovascular History: Reports: Blood Clots/VTE/DVT, High Cholesterol, Hypertension, [place], Pacemaker, Stents Other Cardiovascular History: EF 25%. PPM with AICD placed 07/2018 Respiratory History: Reports: None Gastrointestinal History: Reports: None Other Gastrointestinal History: possible acid reflux Genitourinary History: Reports: None Other Genitourinary History: Stage 3 chronic kidney disease. Musculoskeletal History: Reports: Arthritis Other Musculoskeletal History: hands Neurological History: Reports: None Other Neuro History: shingles right side of head Psychiatric History: Reports: None Endocrine/Metabolic History: Reports: Diabetes, Type II, Obesity/BMI 30+ Hematologic History: Reports: None Immunologic History: Reports: None Oncologic (Cancer) History: Reports: None Dermatologic History: Reports: None - Infectious Disease History Infectious Disease History: Reports: None Social & Family History - Family History Family Medical History: Noncontributory Cardiac: Reports: High Cholesterol, Hypertension Other Cardiac Family History: grandfather, brother Neurological: Reports: CVA Other Neurological Family History: dad, grandmother, brother Oncologic: Reports: Colon Other Oncologic Family History: mother - Tobacco Use Smoking Status *Q: Never Smoker Second Hand Smoke Exposure: No - Caffeine Use Caffeine Use: Reports: None Caffeine Use Comment: 1 gallon caffeinated tea every three day. - Recreational Drug Use Recreational Drug Use: No H&P Review of Systems - Review of Systems: Review Of Systems: See Below Pulmonary: Reports: Shortness of Breath, Cough Cardiovascular: Reports: Dyspnea on Exertion Gastrointestinal: Reports: Distension Genitourinary: Reports: No Symptoms Musculoskeletal: Reports: No Symptoms, Other (Chroic venous skin changes) Skin: Reports: No Symptoms Psychiatric: Reports: No Symptoms Neurological: Reports: No Symptoms Hematologic/Lymphatic: Reports: No Symptoms Exam - Exam Exam: See Below (Not acutely ill looking) - Vital Signs Vital Signs: Last Vital Signs Temp 97.1 F 01/30/19 19:01 Pulse 175 H 01/30/19 19:01 Resp 18 01/30/19 19:01 BP 105/80 01/30/19 19:01 Pulse Ox 95 01/30/19 19:01 Weight: 322 lb 6.4 oz - Exam Quality Assessment: DVT Prophylaxis General: Alert, Oriented, 4 HEENT: PERRLA, Hearing Intact, Mucosa Moist & [place], Nares Patent, Normal Nasal Septum, Posterior Pharynx Clear, Conjunctiva Clear, EOMI, EACs Clear, TMs Clear Neck: Supple, Trachea Midline, 2 Lungs: Clear to Auscultation, Normal Respiratory Effort, Other (CTA) Cardiovascular: Regular Rate, Regular Rhythm GI/Abdominal Exam: Normal Bowel Sounds, Soft, Non-Tender, No Organomegaly, No Distention, No Abnormal Bruit, No Mass, Pelvis Stable (Male) Exam: No Hernia, Normal Inspection, Normal Prostate, Circumcised Rectal (Males) Exam: Normal Exam, Normal Rectal Tone, Prostate Normal Back Exam: Normal Inspection, Full Range of Motion, NT Extremities: Normal Inspection, Normal Range of Motion, Non-Tender, No Pedal Edema, Normal Capillary Refill Skin: Warm Neurological: Cranial Nerves Intact, Reflexes Equal Bilateral Neuro Extensive - Mental Status: Alert, Oriented x3, Normal Mood/Affect, Normal Cognition Neuro Extensive - Motor, Sensory, Reflexes: CN II-XII Intact, Normal Gait, Normal Reflexes Psychiatric: Alert, Normal Affect, Normal Mood - Patient Data Lab Results Last 24 hrs: Laboratory Results - last 24 hr 01/30/19 01/30/19 01/30/19 Range/Units 16:41 16:41 16:41 WBC 7.6 (5.0-10.0) 10^3/uL RBC 5.32 (4.6-6.2) 10^6/uL Hgb 15.6 D (14.0-18.0) g/dL Hct 47.9 (40.0-54.0) % MCV 90.0 D (80-100) fL MCH 29.3 (27.0-34.0) pg MCHC 32.6 L (33.0-35.0) g/dL Plt Count 212 (150-450) 10^3/uL Neut % (Auto) 64.0 (42.2-75.2) % Lymph % (Auto) 21.8 (20.5-50.1) % [place] % (Auto) 11.3 H (2-8) % Eos % (Auto) 2.5 (1.0-3.0) % Baso % (Auto) 0.4 (0.0-1.0) % D-Dimer, Quantitative 901 H (0-400) ng/mL Sodium 134 L (135-145) mmol/L Potassium 4.3 (3.6-5.0) mmol/L Chloride 90 L (101-111) mmol/L Carbon Dioxide 33.0 H (21.0-31.0) mmol/L Anion Gap 15.3 BUN 47 H (7-18) mg/dL Creatinine 1.9 H (0.6-1.3) mg/dL Est Cr Clr Drug Dosing 48.85 mL/min Estimated GFR (MDRD) 36 BUN/Creatinine Ratio 24.73 Glucose 165 H (74-105) mg/dL Calcium 8.7 (8.4-10.2) mg/dl Total Bilirubin 1.7 H (0.2-1.0) mg/dL AST 22 (10-42) IU/L ALT 20 (10-60) IU/L Alkaline Phosphatase 60 (42-121) IU/L Troponin I 0.05 H* (0.00-0.02) ng/ml B-Natriuretic Peptide 799 H (0-100) pg/ml Total Protein 6.8 (6.7-8.2) g/dl Albumin 3.5 (3.2-5.5) g/dl Globulin 3.3 Albumin/Globulin Ratio 1.06 Result Diagrams: 01/30/19 16:41 01/30/19 16:41 - Problem List (1) CHF (congestive heart failure) SNOMED Code(s): 11335465 ICD Code: I50.9 - HEART FAILURE, UNSPECIFIED Status: Acute Current Visit : No Qualifiers: Heart failure type: systolic Heart failure chronicity: acute on chronic Qualified Code(s): I50.23 - Acute on chronic systolic (congestive) heart failure (2) Chronic kidney disease, stage III (moderate) SNOMED Code(s): 928253726 ICD Code: N18.3 - CHRONIC KIDNEY DISEASE, STAGE 3 (MODERATE) Status: Acute Current Visit: No (3) Diabetes SNOMED Code(s): 99808314 ICD Code: E11.9 - TYPE 2 DIABETES MELLITUS WITHOUT COMPLICATIONS Status: Acute Current Visit: No Qualifiers: Diabetes mellitus type: type 1 Diabetes mellitus complication status: without complication Qualified Code(s): E10.9 - Type 1 diabetes mellitus without complications (4) Hypertension SNOMED Code(s): 23212336 ICD Code: I10 - ESSENTIAL (PRIMARY) HYPERTENSION Status: Acute Current Visit: No Problem List Initiated/Reviewed/Updated: Yes Orders Last 24hrs: Active Orders 24 hr Category Date Time Status Admission Diagnosis [ADT] Urgent ADT 01/30/19 18:48 Ordered Admission Status [Patient Status] [ADT] Routine ADT 01/30/19 18:48 Active Ambulate [RC] ASDIRECTED Care 01/30/19 19:45 Ordered Blood Glucose Check, Bedside [RC] QIDACANDBED Care 01/30/19 19:45 Ordered EKG Documentation Completion [RC] URGENT Care 01/30/19 16:23 Active Height and Weight [RC] DAILY Care 01/30/19 19:45 Ordered Intake and Output [RC] QSHIFT Care 01/30/19 19:57 Ordered Notify Provider Vital Signs [RC] ASDIRECTED Care 01/30/19 19:57 Ordered Oxygen Therapy [RC] PRN Care 01/30/19 19:56 Ordered Pulse Oximetry [RC] PRN Care 01/30/19 19:57 Ordered VTE/DVT Education [RC] PER UNIT ROUTINE Care 01/30/19 19:56 Ordered Vital Signs [RC] Q4H Care 01/30/19 19:56 Ordered OT Evaluation and Treatment [CONS] Routine Cons 01/30/19 19:45 Ordered PT Evaluation and Treatment [CONS] Routine Cons 01/30/19 19:45 Ordered Respiratory Care Assess and Treatment [CONS] Routine Cons 01/30/19 19:45 Ordered Heart Healthy Diet [DIET] Diet 01/31/19 Breakfast Ordered MAGNESIUM [CHEM] Routine Lab 01/30/19 19:45 Ordered PHOSPHORUS [CHEM] Routine Lab 01/30/19 19:45 Ordered Acetaminophen [Tylenol] Med 01/30/19 19:45 Ordered 650 mg PO Q4H PRN Apixaban [Eliquis] Med 01/30/19 21:00 Ordered 2.5 mg PO BID Bumetanide [Bumex] Med 01/31/19 07:00 Ordered 2 mg IVPUSH Q12H Carvedilol [Coreg] Med 01/31/19 08:00 Ordered 3.125 mg PO BIDMEALS Clopidogrel [Plavix] Med 01/31/19 09:00 Ordered 75 mg PO DAILY Docusate Sodium [Colace] Med 01/30/19 19:45 Ordered 100 mg PO BID PRN Gabapentin [Neurontin] Med 01/30/19 20:02 Ordered 300 mg PO DAILY PRN Heparin Sodium Med 01/30/19 21:00 Ordered 5,000 units SUBCUT Q12HR Insulin Aspart [NovoLOG] Med 01/31/19 08:00 Ordered 12 - 20 units SUBCUT TIDMEALS Insulin Isophane NPH, Human Med 01/30/19 21:00 Ordered 60 unit SUBCUT BEDTIME Inulin/Chromium Picolinate [Fiber Gummies] Med 01/31/19 09:00 Ordered 2 tab PO DAILY Simvastatin [Zocor] Med 01/30/19 21:00 Ordered 20 mg PO BEDTIME metOLazone [Metolazone] Med 01/30/19 20:02 Ordered 5 mg PO ASDIRECTED PRN Resuscitation Status Routine Resus Stat 01/30/19 19:45 Ordered Medication Orders Acetaminophen (Tylenol) 650 mg PO Q4H PRN PRN Reason: Pain (Mild 1-3)/fever Bumetanide (Bumex) 2 mg IVPUSH Q12H [facility] Carvedilol (Coreg) 3.125 mg PO BIDMEALS [facility] Clopidogrel Bisulfate (Plavix) 75 mg PO DAILY [facility] Docusate Sodium (Colace) 100 mg PO BID PRN PRN Reason: Constipation Gabapentin (Neurontin) 300 mg PO DAILY PRN PRN Reason: Itching Heparin Sodium (Porcine) (Heparin Sodium) 5,000 units SUBCUT Q12HR [facility] Non-Formulary Medication (Apixaban [Eliquis]) 2.5 mg PO BID [facility] Non-Formulary Medication (Insulin Aspart [Novolog]) 12 - 20 units SUBCUT TIDMEALS [facility] Non-Formulary Medication (Insulin Isophane Nph, Human) 60 unit SUBCUT BEDTIME [facility] Non-Formulary Medication (Inulin/Chromium Picolinate [Fiber Gummies]) 2 tab PO DAILY [facility] Non-Formulary Medication (Metolazone [Metolazone]) 5 mg PO ASDIRECTED PRN PRN Reason: Edema Non-Formulary Medication (Simvastatin [Zocor]) 20 mg PO BEDTIME [facility] Assessment/Plan Comment:: #CHF exacerbation -Patient presented to ED complaining of increasing shortness of breath -BNP mildly elevated -Chest x-ray chronic changes -Admit to medical -Monitor vital -IV Bumex 2 mg twice a day -Continue metolazone -Daily weights -Fluid restriction -Echo in the a.m. if available -Continue beta blockers #Mild hyponatremia -Follow up #Hyperphosphatemia -Follow up #CKD III -Monitor renal function closely #Hypertension -Continue home medications #Diabetes -Continue home medications #CAD -Stable. No chest pain -Continue home medication #Diabetic diet #Full code
[2019-01-30] MEDS ORDERED: Heparin Sodium 5,000 Units/ML Vial SUBCUT SCH (21:00)
[2019-01-30] MEDS ORDERED: Insulin Isophane NPH, Human 100 Units/ML 3 ML Vial SUBCUT SCH (21:00)
[2019-01-30] MEDS ORDERED: Simvastatin 40 MG Tab PO SCH (21:00)
[2019-01-30] MEDS ORDERED: Metolazone 2.5 MG Tab PO PRN (21:00)
[2019-01-30] MEDS: APIXABAN 2.5 MG PO SCH (23:04)
[2019-01-31] MEDS ORDERED: Bumetanide 1 MG/4 ML MDV IVPUSH SCH (07:00)
[2019-01-31] MEDS: Insulin Lispro 100 Units/ML 3 ML Vial SUBCUT SCH ×2 (07:51→12:07)
[2019-01-31] MEDS ORDERED: Carvedilol 3.125 MG Tab PO SCH (08:00)
[2019-01-31] MEDS: APIXABAN 2.5 MG PO SCH (08:40)
[2019-01-31] MEDS ORDERED: Clopidogrel 75 MG Tab PO SCH (09:00)
[2019-01-31] MEDS ORDERED: CHROMIUM PICOLINATE PO SCH (09:00)
[2019-01-31] MEDS ORDERED: INULIN PO SCH (09:00)
[2019-01-31] MEDS ORDERED: Sodium Chloride 0.9% 10 ML Syringe FLUSH SCH (09:00)
[2019-01-31 10:03] LABS: ANION GAP 17.9
[2019-01-31] MEDS ORDERED: Tamsulosin 0.4 MG Cap.ER PO SCH (10:45)
--- NOTE | 2019-01-31 11:27 | PCM.DCSUM1 ---
Discharge Summary - Hospital Course HPI Initial Comments: Rudi is a 64-year-old male with past medical history of hypertension, diabetes , CAD, CHF. Patient presented to the ED complaining of increasing shortness of breath and weight gain. He reports about 6 pound weight gain over the past 24 hours. Patient is on Bumex and metolazone for diuretics. He said he's been taking his medication but he is not making adequate urine. He called his processor grain who advised him to come to the ED for IV diuretics. He was admitted and started on IV bumex. Overnight patient report decreased urine output. He made about 300 cc overnight. His BNP this morning was 417<< 799 yesterday. Vitals stable. Answerer/BUN stable at 1.9/48. Patient is being transferred to [facility] for further evaluation. Diagnosis: Stroke: No - Discharge Data Discharge Date: 01/31/19 Discharge Disposition: DC/Tfer to [facility] Condition: Stable - Referral to Home Health Primary Care Physician: PCP Unobtainable - Discharge Diagnosis/Problem(s) (1) CHF (congestive heart failure) SNOMED Code(s): 02898795 ICD Code: I50.9 - HEART FAILURE, UNSPECIFIED Status: Acute Current Visit : No Qualifiers: Heart failure type: systolic Heart failure chronicity: acute on chronic Qualified Code(s): I50.23 - Acute on chronic systolic (congestive) heart failure (2) Chronic kidney disease, stage III (moderate) SNOMED Code(s): 029369637 ICD Code: N18.3 - CHRONIC KIDNEY DISEASE, STAGE 3 (MODERATE) Status: Acute Current Visit: No (3) Diabetes SNOMED Code(s): 82231789 ICD Code: E11.9 - TYPE 2 DIABETES MELLITUS WITHOUT COMPLICATIONS Status: Acute Current Visit: No Qualifiers: Diabetes mellitus type: type 1 Diabetes mellitus complication status: without complication Qualified Code(s): E10.9 - Type 1 diabetes mellitus without complications (4) Hypertension SNOMED Code(s): 22060244 ICD Code: I10 - ESSENTIAL (PRIMARY) HYPERTENSION Status: Acute Current Visit: No - Patient Summary/Data Consults: Consultations 01/30/19 19:45 OT Evaluation and Treatment [CONS] Routine PT Evaluation and Treatment [CONS] Routine Respiratory Care Assess and Treatment [CONS] Routine - Patient Instructions Diet: Heart Healthy Diet Fluid Restriction: 1500 mL Activity: As Tolerated Driving: May Drive Today Showering/Bathing: May Shower Notify Provider of: Fever, Increased Pain, Swelling and Redness, Nausea and/or Vomiting - Discharge Plan *PRESCRIPTION DRUG MONITORING PROGRAM REVIEWED*: Not Applicable *COPY OF PRESCRIPTION DRUG MONITORING REPORT IN PATIENT KEL: Not Applicable Prescriptions/Med Rec: Escitalopram [Lexapro] 10 mg PO DAILY #30 tab Tamsulosin [Flomax] 0.4 mg PO PCBREAKFAST #30 cap.er Home Medications: Home Meds Carvedilol [Coreg] 3.125 mg PO BIDMEALS 05/17/18 [History] Gabapentin [Neurontin] 300 mg PO TID 05/17/18 [History] Inulin/Chromium Picolinate [Fiber Gummies] 2 tab PO DAILY 05/17/18 [History] Simvastatin [Zocor] 20 mg PO BEDTIME 05/17/18 [History] Apixaban [Eliquis] 2.5 mg PO BID 06/04/18 [History] Clopidogrel [Plavix] 75 mg PO DAILY 07/07/18 [History] Bumetanide [Bumex] 2 mg PO BID 01/30/19 [History] Insulin Aspart [NovoLOG] 12 - 20 units SUBCUT TIDMEALS 01/30/19 [History] Insulin Isophane NPH, Human [NovoLIN N] 60 unit SUBCUT BEDTIME 01/30/19 [History ] metOLazone [Metolazone] 5 mg PO ASDIRECTED PRN 01/30/19 [History] Escitalopram [Lexapro] 10 mg PO DAILY #30 tab 01/31/19 [Rx] Tamsulosin [Flomax] 0.4 mg PO PCBREAKFAST #30 cap.er 01/31/19 [Rx] Forms: ED Department Discharge Referrals: PCP,Unobtain [Primary Care Provider] - - Discharge Summary/Plan Comment DC Time >30 min.: Yes - General Info Date of Service: 01/31/19 Admission Dx/Problem (Free Text: Admission Diagnosis/Problem Admission Diagnosis/Problem CHF, Congestive heart failure Functional Status: Reports: Pain Controlled - Review of Systems General: Reports: No Symptoms HEENT: Reports: No Symptoms Pulmonary: Reports: No Symptoms Cardiovascular: Reports: No Symptoms Gastrointestinal: Reports: No Symptoms Genitourinary: Reports: No Symptoms Musculoskeletal: Reports: No Symptoms Skin: Reports: No Symptoms Neurological: Reports: No Symptoms Psychiatric: Reports: No Symptoms - Patient Data Vitals - Most Recent: Last Vital Signs Temp 97.2 F 01/31/19 07:58 Pulse 99 01/31/19 08:40 Resp 20 01/31/19 07:58 BP 128/91 H 01/31/19 08:40 Pulse Ox 93 L 01/31/19 07:58 Weight - Most Recent: 322 lb 6.4 oz I&O - Last 24 hours: Intake & Output 01/30/19 01/31/19 01/31/19 22:59 06:59 14:59 Intake Total 1020 Output Total 300 300 Balance -300 720 Lab Results - Last 24 hrs: Laboratory Results - last 24 hr 01/30/19 01/30/19 01/30/19 Range/Units 16:41 16:41 16:41 WBC 7.6 (5.0-10.0) 10^3/uL RBC 5.32 (4.6-6.2) 10^6/uL Hgb 15.6 D (14.0-18.0) g/dL Hct 47.9 (40.0-54.0) % MCV 90.0 D (80-100) fL MCH 29.3 (27.0-34.0) pg MCHC 32.6 L (33.0-35.0) g/dL Plt Count 212 (150-450) 10^3/uL Neut % (Auto) 64.0 (42.2-75.2) % Lymph % (Auto) 21.8 (20.5-50.1) % [place] % (Auto) 11.3 H (2-8) % Eos % (Auto) 2.5 (1.0-3.0) % Baso % (Auto) 0.4 (0.0-1.0) % D-Dimer, Quantitative 901 H (0-400) ng/mL Sodium 134 L (135-145) mmol/L Potassium 4.3 (3.6-5.0) mmol/L Chloride 90 L (101-111) mmol/L Carbon Dioxide 33.0 H (21.0-31.0) mmol/L Anion Gap 15.3 BUN 47 H (7-18) mg/dL Creatinine 1.9 H (0.6-1.3) mg/dL Est Cr Clr Drug Dosing 48.85 mL/min Estimated GFR (MDRD) 36 BUN/Creatinine Ratio 24.73 Glucose 165 H (74-105) mg/dL POC Glucose (70-105) mg/dl Calcium 8.7 (8.4-10.2) mg/dl Phosphorus (2.5-4.6) mg/dL Magnesium (1.8-2.5) mg/dL Total Bilirubin 1.7 H (0.2-1.0) mg/dL AST 22 (10-42) IU/L ALT 20 (10-60) IU/L Alkaline Phosphatase 60 (42-121) IU/L Troponin I 0.05 H* (0.00-0.02) ng/ml B-Natriuretic Peptide 799 H (0-100) pg/ml Total Protein 6.8 (6.7-8.2) g/dl Albumin 3.5 (3.2-5.5) g/dl Globulin 3.3 Albumin/Globulin Ratio 1.06 01/30/19 01/30/19 01/31/19 Range/Units 16:41 20:34 06:12 WBC (5.0-10.0) 10^3/uL RBC (4.6-6.2) 10^6/uL Hgb (14.0-18.0) g/dL Hct (40.0-54.0) % MCV (80-100) fL MCH (27.0-34.0) pg MCHC (33.0-35.0) g/dL Plt Count (150-450) 10^3/uL Neut % (Auto) (42.2-75.2) % Lymph % (Auto) (20.5-50.1) % [place] % (Auto) (2-8) % Eos % (Auto) (1.0-3.0) % Baso % (Auto) (0.0-1.0) % D-Dimer, Quantitative (0-400) ng/mL Sodium (135-145) mmol/L Potassium (3.6-5.0) mmol/L Chloride (101-111) mmol/L Carbon Dioxide (21.0-31.0) mmol/L Anion Gap BUN (7-18) mg/dL Creatinine (0.6-1.3) mg/dL Est Cr Clr Drug Dosing mL/min Estimated GFR (MDRD) BUN/Creatinine Ratio Glucose (74-105) mg/dL POC Glucose 114 H (70-105) mg/dl Calcium (8.4-10.2) mg/dl Phosphorus 4.9 H 4.7 H (2.5-4.6) mg/dL Magnesium 2.1 (1.8-2.5) mg/dL Total Bilirubin (0.2-1.0) mg/dL AST (10-42) IU/L ALT (10-60) IU/L Alkaline Phosphatase (42-121) IU/L Troponin I (0.00-0.02) ng/ml B-Natriuretic Peptide (0-100) pg/ml Total Protein (6.7-8.2) g/dl Albumin (3.2-5.5) g/dl Globulin Albumin/Globulin Ratio 01/31/19 01/31/19 01/31/19 Range/Units 06:12 07:46 08:33 WBC (5.0-10.0) 10^3/uL RBC (4.6-6.2) 10^6/uL Hgb (14.0-18.0) g/dL Hct (40.0-54.0) % MCV (80-100) fL MCH (27.0-34.0) pg MCHC (33.0-35.0) g/dL Plt Count (150-450) 10^3/uL Neut % (Auto) (42.2-75.2) % Lymph % (Auto) (20.5-50.1) % [place] % (Auto) (2-8) % Eos % (Auto) (1.0-3.0) % Baso % (Auto) (0.0-1.0) % D-Dimer, Quantitative (0-400) ng/mL Sodium 133 L (135-145) mmol/L Potassium 3.9 (3.6-5.0) mmol/L Chloride 90 L (101-111) mmol/L Carbon Dioxide 29.0 (21.0-31.0) mmol/L Anion Gap 17.9 BUN 48 H (7-18) mg/dL Creatinine 1.9 H (0.6-1.3) mg/dL Est Cr Clr Drug Dosing 48.85 mL/min Estimated GFR (MDRD) 36 BUN/Creatinine Ratio Glucose 50 L (74-105) mg/dL POC Glucose 47 L* 60 L (70-105) mg/dl Calcium 8.8 (8.4-10.2) mg/dl Phosphorus (2.5-4.6) mg/dL Magnesium (1.8-2.5) mg/dL Total Bilirubin (0.2-1.0) mg/dL AST (10-42) IU/L ALT (10-60) IU/L Alkaline Phosphatase (42-121) IU/L Troponin I (0.00-0.02) ng/ml B-Natriuretic Peptide 420 H (0-100) pg/ml Total Protein (6.7-8.2) g/dl Albumin (3.2-5.5) g/dl Globulin Albumin/Globulin Ratio 01/31/19 01/31/19 Range/Units 09:50 11:11 WBC (5.0-10.0) 10^3/uL RBC (4.6-6.2) 10^6/uL Hgb (14.0-18.0) g/dL Hct (40.0-54.0) % MCV (80-100) fL MCH (27.0-34.0) pg MCHC (33.0-35.0) g/dL Plt Count (150-450) 10^3/uL Neut % (Auto) (42.2-75.2) % Lymph % (Auto) (20.5-50.1) % [place] % (Auto) (2-8) % Eos % (Auto) (1.0-3.0) % Baso % (Auto) (0.0-1.0) % D-Dimer, Quantitative (0-400) ng/mL Sodium (135-145) mmol/L Potassium (3.6-5.0) mmol/L Chloride (101-111) mmol/L Carbon Dioxide (21.0-31.0) mmol/L Anion Gap BUN (7-18) mg/dL Creatinine (0.6-1.3) mg/dL Est Cr Clr Drug Dosing mL/min Estimated GFR (MDRD) BUN/Creatinine Ratio Glucose (74-105) mg/dL POC Glucose 149 H 146 H (70-105) mg/dl Calcium (8.4-10.2) mg/dl Phosphorus (2.5-4.6) mg/dL Magnesium (1.8-2.5) mg/dL Total Bilirubin (0.2-1.0) mg/dL AST (10-42) IU/L ALT (10-60) IU/L Alkaline Phosphatase (42-121) IU/L Troponin I (0.00-0.02) ng/ml B-Natriuretic Peptide (0-100) pg/ml Total Protein (6.7-8.2) g/dl Albumin (3.2-5.5) g/dl Globulin Albumin/Globulin Ratio Med Orders - Current: Current Medications Acetaminophen (Tylenol) 650 mg PO Q4H PRN PRN Reason: Pain (Mild 1-3)/fever Bumetanide (Bumex) 2 mg IVPUSH Q12H [facility] Last Admin: 01/31/19 07:40 Dose: 2 mg Carvedilol (Coreg) 3.125 mg PO BIDMEALS [facility] Last Admin: 01/31/19 08:40 Dose: 3.125 mg Clopidogrel Bisulfate (Plavix) 75 mg PO DAILY [facility] Last Admin: 01/31/19 08:41 Dose: 75 mg Docusate Sodium (Colace) 100 mg PO BID PRN PRN Reason: Constipation Gabapentin (Neurontin) 300 mg PO TID [facility] Insulin Human Lispro (Humalog) 12 - 20 unit SUBCUT TIDMEALS [facility] Last Admin: 01/31/19 07:51 Dose: Not Given Insulin Human NPH (Humulin N) 60 unit SUBCUT BEDTIME [facility] Last Admin: 01/30/19 20:51 Dose: 60 unit Metolazone (Zaroxolyn) 5 mg PO ASDIRECTED PRN PRN Reason: EDEMA Apixaban (Eliquis) 2 .5 Mg Tabs Own Med 0 mg PO BID [facility] Last Admin: 01/31/19 08:40 Dose: 2.5 mg Inulin/Chromium Picolinate [Fiber Gummies] 2 tab PO DAILY [facility] Simvastatin (Zocor) 20 mg PO BEDTIME [facility] Last Admin: 01/30/19 20:54 Dose: 20 mg Sodium Chloride (Saline Flush) 10 ml FLUSH BID [facility] Last Admin: 01/31/19 08:41 Dose: 10 ml Tamsulosin HCl (Flomax) 0.4 mg PO PCBREAKFAST [facility] Last Admin: 01/31/19 11:15 Dose: 0.4 mg Discontinued Medications Bumetanide (Bumex) 2 mg IVPUSH ONETIME ONE Stop: 01/30/19 18:43 Last Admin: 01/30/19 18:56 Dose: 2 mg Gabapentin (Neurontin) 300 mg PO DAILY PRN PRN Reason: Itching Last Admin: 01/30/19 20:56 Dose: 300 mg Heparin Sodium (Porcine) (Heparin Sodium) 5,000 units SUBCUT Q12HR [facility] Last Admin: 01/30/19 22:08 Dose: Not Given - Exam General: Reports: Alert, Oriented HEENT: Reports: Pupils Equal, Pupils Reactive, EOMI, Mucous Membr. Moist/[place] Neck: Reports: Supple Lungs: Reports: Clear to Auscultation, Normal Respiratory Effort Cardiovascular: Reports: Regular Rate, Regular Rhythm GI/Abdominal Exam: Normal Bowel Sounds, Soft, Non-Tender, No Organomegaly, No Distention, No Abnormal Bruit, No Mass, Pelvis Stable (Male) Exam: No Hernia, Normal Inspection, Normal Prostate, Circumcised Rectal (Males) Exam: Normal Exam, Normal Rectal Tone, Prostate Normal Back Exam: Reports: Normal Inspection, Full Range of Motion Extremities: Normal Inspection, Normal Range of Motion, Non-Tender, No Pedal Edema, Normal Capillary Refill Skin: Reports: Warm, Dry, Intact Wound/Incisions: Reports: Healing Well Neurological: Reports: No New Focal Deficit Psy/Mental Status: Reports: Alert, Normal Affect, Normal Mood
[2019-01-31] MEDS ORDERED: Gabapentin 300 MG Cap PO SCH (14:00)
== END 2019-01-31 12:00 | DRG 291 ==
LOC: DL.ED 16:20 → DL.MS 18:48
PROVIDERS: ADMIT Student in an Organized Health Care Education/Training Program; ATTEND Student in an Organized Health Care Education/Training Program
DX: I13.0 Hypertensive heart and chronic kidney disease with heart failure and stage 1 through stage 4 chronic kidney disease, or unspecified chronic kidney disease (principal); I50.23 Acute on chronic systolic (congestive) heart failure; E87.1 Hypo-osmolality and hyponatremia; N18.3 Chronic kidney disease, stage 3 (moderate); R79.89 Other specified abnormal findings of blood chemistry; R06.02 Shortness of breath; I25.10 Atherosclerotic heart disease of native coronary artery without angina pectoris; H54.7 Unspecified visual loss; E78.00 Pure hypercholesterolemia, unspecified; M19.90 Unspecified osteoarthritis, unspecified site; E66.9 Obesity, unspecified; E83.39 Other disorders of phosphorus metabolism; E11.22 Type 2 diabetes mellitus with diabetic chronic kidney disease; Z86.718 Personal history of other venous thrombosis and embolism; Z79.899 Other long term (current) drug therapy; I25.2 Old myocardial infarction; Z79.4 Long term (current) use of insulin; Z95.810 Presence of automatic (implantable) cardiac defibrillator; Z68.38 Body mass index [BMI] 38.0-38.9, adult
CPT/HCPCS: 36415; 71046; 80048; 80053; 82962; 83735; 83880; 84100; 84484; 85025; 85379; 93005; 96374; 97161-GP; 97165-GO; 99285-25; A9270-GY; J1815; J3490